=== PATIENT | female | born 1980 | race Caucasian/White ===

== ENCOUNTER → 2020-02-12 14:51 | Outpatient (BNVA) | payer BC, SELFPAY | PROVIDERS: PCP Internal Medicine; Referring Provider Internal Medicine; Visit Provider Advanced Practice Midwife | DX: Z76.89 Persons encountering health services in other specified circumstances (principal) ==

== ENCOUNTER 2020-03-11 08:36 | Outpatient (REF) | payer BC, SELFPAY ==
--- NOTE | 2020-03-11 08:39 | MM_ITS ---
EXAMINATION: MM SCREENING DIGITAL BREAST TOMOSYNTHESIS, BILATERAL CLINICAL INFORMATION: Screening. Asymptomatic. The lifetime risk of breast cancer based on the Tyrer-Cuzick Model is 15%. COMPARISON: Mammography: 12/10/2018, 05/23/2011, 11/10/2010, 11/05/2010 TECHNIQUE: Digital breast tomosynthesis is performed in both the craniocaudal and mediolateral oblique views along with computer-aided detection (CAD). Synthesized 2D images are generated from the tomosynthesis. FINDINGS: There are scattered areas of fibroglandular density (ACR BI-RADS breast composition Category b). Breast tissue composition borders on heterogeneously dense. There is no significant mass or architectural abnormality. Again, there are biopsy clips upper outer right breast with some residual punctate calcifications. There are no significant calcifications in either breast. The axilla and skin contours are unremarkable. MM/MM tomosynthesis screening BI IMPRESSION: No significant changes from prior exams. ASSESSMENT: BI-RADS 2: Benign RECOMMENDATION: Routine annual mammography screening. This patient's information was entered into a reminder system with a target due date for their next mammogram.
== END 2020-03-11 08:37 | disposition home or self-care (01) ==
LOC: HO.MAMMO 08:36
PROVIDERS: PCP Internal Medicine; Visit Provider Advanced Practice Midwife
DX: Z12.31 Encounter for screening mammogram for malignant neoplasm of breast (principal)
CPT/HCPCS: 77063; 77067

== ENCOUNTER 2020-06-17 14:15 | Outpatient (REF) | payer BC, SELFPAY ==
[2020-06-17 14:45] LABS: MANUAL DIFF FLAG NO
[2020-06-17 14:48] LABS: Basophils Percent Auto 0.4 % (0-2); Eosinophils Percent Auto 0.7 % (0-4); Hematocrit 41.5 % (37-47); Hemoglobin 13.9 g/dl (12.0-16.0); Imm Gran Abs Auto 0.02 X10*3/uL (0.00-0.03); Imm Gran Pct Auto 0.4 % (0.0-0.4); Lymphocytes Absolute Auto 2.6 X10*3/uL (1.2-4.9); Lymphocytes Percent Auto 45.4 % (20-40); Mean Corpuscular HGB Conc 33.5 g/dl (31.0-35.0); Mean Corpuscular Hemoglobin 30.7 pg (27.0-33.0); Mean Corpuscular Volume 91.6 fL (80-98); Mean Platelet Volume 8.4 fL (9.4-12.3); Monocytes Absolute Auto 0.5 X10*3/uL (0.1-1.2); Monocytes Percent Auto 8.3 % (2-11); Neutrophils Absolute Auto 2.5 X10*3/uL (2.0-8.3); Neutrophils Percent Auto 44.8 % (45-73); Platelet Count 292 X10*3/uL (160-400); Red Blood Count 4.53 X10*6/uL (4.20-5.50); Red Cell Distribution Width 11.7 % (11.0-16.0); White Blood Count 5.7 X10*3/uL (4.8-10.8)
[2020-06-17 15:14] LABS: Anion Gap 10 (12-20); Blood Urea Nitrogen 10 mg/dL (9-16); Calcium 8.9 mg/dL (8.4-10.2); Carbon Dioxide 28 mmol/L (22-29); Chloride 104 mmol/L (96-108); Cholesterol 156 mg/dL; Estimated Glomerular Filt Rate > 60; Glucose Fasting 83 mg/dL (60-99); HDL Cholesterol 55 mg/dL; LDL Cholesterol Calculated 91 mg/dl; Potassium 3.9 mmol/L (3.3-5.1); Sodium 138 mmol/L (135-145); Triglycerides 52 mg/dL
[2020-06-17 15:35] LABS: Vitamin D 25-OH Total 25.7 ng/mL (>30)
[2020-06-18 10:06] LABS: Anti-Thrombin III Activity 94 % normal (80-135)
[2020-06-18 13:16] LABS: PTT (LAC) Screen 28 sec (< OR = 40)
[2020-06-19 22:12] LABS: Protein C Activity 110 % (70-180); Protein S Activity rflx Tot&Fr 23 % (60-140)
[2020-06-23 13:08] LABS: Protein S Free Antigen 54 % normal (50-147); Protein S Total (Antigenic) 60 % normal (70-140)
== END 2020-06-17 14:16 | disposition home or self-care (01) ==
LOC: HO.LAB 14:15
PROVIDERS: PCP Internal Medicine; Visit Provider Internal Medicine
DX: O09.519 Supervision of elderly primigravida, unspecified trimester (principal); O22.30 Deep phlebothrombosis in pregnancy, unspecified trimester; O16.9 Unspecified maternal hypertension, unspecified trimester; Z87.59 Personal history of other complications of pregnancy, childbirth and the puerperium; Z3A.00 Weeks of gestation of pregnancy not specified
CPT/HCPCS: 36415; 80048; 80061; 81241; 82306; 85025; 85300; 85302; 85303; 85305; 85306; 85597; 85613; 85730

== ENCOUNTER 2020-09-18 10:00 | Outpatient (REF) | payer BC, SELFPAY ==
[2020-09-21 22:27] LABS: Protein S Activity rflx Tot&Fr 26 % (60-140)
[2020-09-23 12:22] LABS: Protein S Free Antigen 48 % normal (50-147); Protein S Total (Antigenic) 57 % normal (70-140)
== END 2020-09-18 10:01 | disposition home or self-care (01) ==
LOC: HO.WFDLDS 10:00
PROVIDERS: Visit Provider Internal Medicine Medical Oncology
DX: O22.30 Deep phlebothrombosis in pregnancy, unspecified trimester (principal)
CPT/HCPCS: 36415; 81240; 85305; 85306

== ENCOUNTER → 2021-03-24 11:04 | Outpatient (BNVA) | payer BC, SELFPAY | PROVIDERS: PCP Internal Medicine; Visit Provider Obstetrics & Gynecology ==

== ENCOUNTER 2021-06-02 15:22 | Outpatient (REF) | payer BC, SELFPAY ==
--- NOTE | ~2021-06-02 | MM_ITS ---
EXAMINATION: MM SCREENING DIGITAL BREAST TOMOSYNTHESIS, BILATERAL CLINICAL INFORMATION: Screening. Asymptomatic. The lifetime risk of breast cancer based on the Tyrer-Cuzick Model is 16%. COMPARISON: Mammography: 03/11/2020, 12/10/2018, 05/23/2011, 11/10/2010, 11/05/2010 TECHNIQUE: Digital breast tomosynthesis is performed in both the craniocaudal and mediolateral oblique views along with computer-aided detection (CAD). Synthesized 2D images are generated from the tomosynthesis. FINDINGS: There are scattered areas of fibroglandular density (ACR BI-RADS breast composition Category b). There are no significant masses, abnormal calcifications, or other abnormalities. Breast tissue composition borders on heterogeneously dense. Biopsy clip markers again seen right breast upper outer quadrant with a few residual punctate calcifications. There are no significant changes from prior studies. No interval mass or architectural abnormality or abnormal calcifications. The axilla are unremarkable. MM/MM tomosynthesis screening BI IMPRESSION: No mammographic evidence of malignancy. ASSESSMENT: BI-RADS 2: Benign RECOMMENDATION: Routine annual mammography screening. This patient's information was entered into a reminder system with a target due date for their next mammogram.
== END 2021-06-02 15:23 | disposition home or self-care (01) ==
LOC: HO.MAMMO 15:22
PROVIDERS: Visit Provider Obstetrics & Gynecology
DX: Z12.31 Encounter for screening mammogram for malignant neoplasm of breast (principal)
CPT/HCPCS: 77063; 77067

== ENCOUNTER 2022-03-29 15:46 | Outpatient (REF) | payer BC, SELFPAY ==
[2022-03-31 19:59] LABS: HPV mRNA E6/E7 rflx Not Detected (Not Detected)
== END 2022-03-29 15:47 | disposition home or self-care (01) ==
LOC: HO.LNP 15:46
PROVIDERS: Visit Provider Obstetrics & Gynecology
DX: Z01.419 Encounter for gynecological examination (general) (routine) without abnormal findings (principal); Z11.51 Encounter for screening for human papillomavirus (HPV)
CPT/HCPCS: 87624; 88142

== ENCOUNTER 2022-06-08 15:21 | Outpatient (REF) | payer BC, SELFPAY ==
--- NOTE | ~2022-06-08 | MM_ITS ---
EXAMINATION: MM SCREENING DIGITAL BREAST TOMOSYNTHESIS, BILATERAL CLINICAL INFORMATION: Asymptomatic screening The lifetime risk of breast cancer based on the Tyrer-Cuzick Model is 15.1%. COMPARISON: Mammography: June 02, 2021 and studies dating back to May 23, 2011 TECHNIQUE: Digital breast tomosynthesis is performed in both the craniocaudal and mediolateral oblique views along with computer-aided detection (CAD). Synthesized 2D images are generated from the tomosynthesis. FINDINGS: The breasts are heterogeneously dense, which may obscure small masses (ACR BI-RADS breast composition Category c). There are no significant masses, abnormal calcifications, or other abnormalities. Results are provided to the patient at time of visit by the technologist. MM/MM tomosynthesis screening BI IMPRESSION: There are no significant changes from prior study. ASSESSMENT: BI-RADS 1: Negative RECOMMENDATION: Routine annual mammography screening. This patient's information was entered into a reminder system with a target due date for their next mammogram.
== END 2022-06-08 15:22 | disposition home or self-care (01) ==
LOC: HO.MAMMO 15:21
PROVIDERS: PCP Internal Medicine; Visit Provider Internal Medicine
DX: Z12.31 Encounter for screening mammogram for malignant neoplasm of breast (principal)
CPT/HCPCS: 77062; 77063; 77066; 77067

== ENCOUNTER 2022-12-20 11:15 | Outpatient (AMB) | payer BC, SELFPAY ==
[2022-12-20 11:25] VITALS: BP 110/64; PULSE 84; TEMP 36.8; O2SAT 98; BMI 23.3
--- NOTE | 2022-12-20 11:25 | MHC.OFFWIV ---
Intake Vital Signs 12/20/22 11:25 Height 5 ft 6 in Weight 144 lb 6 oz BMI 23.3 BP 110/64 Blood Pressure Location Rt brachial Position Sitting Pulse 84 Pulse Source Pulse Oximeter Temp 98.3 F Temp Source Temporal Artery Scan Pulse Oximetry (%) 98 Oxygen Delivery Method Room Air Intake Visit Reasons: EP, Left leg pain Intake Note: Pt is here c/o left leg pain since Monday morning. Pt states no falls or injuries. Pt states 16 years ago she did have a blood clot in her leg. Patient Tobacco Use Status: Never used Tobacco Allergies No Known Allergies Allergy (Unknown, Verified 12/20/22 11:54) Medication List - Last Reconciled 12/20/22 by Alexander Pascal MD cholecalciferol (vitamin D3) 1,250 mcg PO QWEEK 90 days multivitamin 1 tab PO DAILY Do you need a note to return to daycare/school/sports/work: No HPI EP, Left leg pain HPI Details 42-year-old female presents to the office for a sick visit. Patient believes she could have a blood clot in her left leg. She was diagnosed with DVT 14 years ago after a . She was on Lovenox and Coumadin for 6 months. [place] and returned a few days ago driving. She noticed that her left leg feels a little swollen and mild discomfort. 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 Gender identity: Female Female Reproductive History Menstrual Age of Menarche: 11 Physical Exam Vital Signs: Last Vital Signs Temp 98.3 F 12/20/22 11:25 Pulse 84 12/20/22 11:25 BP 110/64 12/20/22 11:25 Pulse Ox 98 12/20/22 11:25 Oxygen Delivery Method Room Air 12/20/22 11:25 BMI result Body Mass Index 23.3 Const General: cooperative and healthy appearing Nutritional Appearance: well nourished Orientation/consciousness: patient oriented x3 Limitations: no limitations HEENT Head: Yes normal to inspection Eyes General: appearance normal, both eyes and all related structures Neck Neck: Yes normal visual inspection Chest Chest palpation & inspection: normal palpation of entire chest wall Resp Effort & Inspection: normal respiratory effort Neuro General: patient oriented x3 Extrem Other: Left leg: Slightly swollen compared to the right. No visible bruising or tenderness. Assessment & Plan Assessment & Plan (1) Deep vein thrombosis: Code(s): I82.409 - Acute embolism and thrombosis of unspecified deep veins of unspecified lower extremity Plan: Previous record reviewed for 15 minutes. Patient has hypercoagulable state with protein S deficiency. An ultrasound has been requested. The results are pending at the time of patient's discharge. I informed her that I would call her with results. Orders: Orders US venous duplex LE LT Today I82.409 - Acute embolism and thrombosis of unspecified deep veins of unspecified lower extremity Coding Level of Care Code Est Pt Level 4 (08840) Diagnoses Deep vein thrombosis I82.409
== END 2022-12-20 11:57 | disposition home or self-care (01) ==
PROVIDERS: PCP Internal Medicine; Visit Provider Internal Medicine
DX: I82.409 Acute embolism and thrombosis of unspecified deep veins of unspecified lower extremity (principal)
CPT/HCPCS: 99214

== ENCOUNTER 2022-12-20 11:59 | Outpatient (REF) | payer BC, SELFPAY ==
--- NOTE | ~2022-12-20 | US_ITS ---
EXAMINATION: US VENOUS ULTRASOUND WITH DOPPLER LOWER EXTREMITY, LEFT CLINICAL INFORMATION: Left lower extremity swelling. COMPARISON: None available. TECHNIQUE: Ultrasound of the deep veins is performed from the hip to the calf with compression sonography and color and pulse Doppler assessment. Spectral analysis with color-flow imaging is performed. FINDINGS: There is normal venous compression and respiratory variation and augmented flow. The visualized common femoral vein, superficial femoral vein, profunda femoral vein, popliteal vein, and the trifurcation region shows no evidence of deep venous thrombosis. Arterial and occlusive thrombus is seen in the left gastrocnemius vein. The right common femoral vein is patent. No left popliteal cyst. The subcutaneous soft tissues are unremarkable. US/US venous duplex LE LT IMPRESSION: Partial and occlusive occlusive thrombus in the left gastrocnemius vein. No evidence for deep venous thrombosis in the remainder of the left lower extremity.
== END 2022-12-20 12:00 | disposition home or self-care (01) ==
LOC: HO.HMGCX 11:59
PROVIDERS: PCP Internal Medicine; Visit Provider Internal Medicine
DX: M79.89 Other specified soft tissue disorders (principal)
CPT/HCPCS: 93971

== ENCOUNTER 2023-01-26 14:19 | Outpatient (AMB) | payer BC, SELFPAY ==
--- NOTE | 2023-01-26 14:27 | A.OFFPC_ITS ---
Vital Signs 01/26/23 14:46 Height 5 ft 6 in Weight 145 lb BMI 23.4 BP 98/60 Blood Pressure Location Rt brachial Position Sitting Pulse 76 Pulse Source Pulse Oximeter Pulse Oximetry (%) 99 Oxygen Delivery Method Room Air Intake Visit Reasons: Hemotology Referral-Blood Clot in Lower Left Leg Intake Note: patient is here today for a blood clot in lower leg Allergies No Known Allergies Allergy (Unknown, Verified 01/26/23 15:32) Medication List - Last Reconciled 01/26/23 by Martha Cobb MD apixaban (Eliquis) 5 mg PO BID cholecalciferol (vitamin D3) 1,250 mcg PO QWEEK 90 days multivitamin 1 tab PO DAILY Tobacco use date assessed: 01/26/23 Dental Screening Dental Screen Date: 01/26/23 Did you have a dental visit in the last 12 months?: Yes Did you have a dental problem in the last 6 months where you did not have access to dental care?: No Was dental information given to patient?: Patient has dentist HPI Hemotology Referral-Blood Clot in Lower Left Leg HPI Details 42-year-old lady here today for follow-u p after recent ER visit. She has protein S deficiency, had a DVT when she was approximately 16 years ago. Did not develop any complications from this, was not on any blood thinner. She presented recently to the walk-in clinic complaining of heaviness and pain behind her left knee joint. An ultrasound of vein did not show any evidence of DVT however it did show presence of superficial thrombophlebitis in the left lower extremity. She was prescribed Eliquis 5 mg twice a day and requesting a referral to see follow-up with Hematology again. Has seen Dr. Molina in the past [facility] Medical History History of deep venous thrombosis (DVT) of distal vein of right lower extremity Protein S deficiency Hx of deep vein thrombosis during Surgical History H/O breast biopsy History of wisdom tooth extraction Family History Paternal Grandmother Breast cancer Mother Adenoid cystic carcinoma Maternal Grandmother Ovarian cancer Maternal Grandfather Prostate cancer Social History Household Members: Spouse and Children Housing: House Alcohol intake: former Patient Tobacco Use Status: Never used Tobacco service: No Current occupational status: employed 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 1. Little interest or pleasure in doing things: not at all 2. Feeling down, depressed, or hopeless: not at all 3. Trouble falling or staying asleep, or sleeping too much: not at all 4. Feeling tired or having little energy: not at all 5. Poor appetite or overeating: not at all 6. Feeling bad about yourself - or that you are a failure or have let yourself or your family down: not at all 7. Trouble concentrating on things, such as reading the newspaper or watching television: not at all 8. Moving or speaking so slowly that other people could have noticed. Or the opposite - being so fidgety or restless that you have been moving around a lot more than usual: not at all 9. Thoughts that you would be better off or of hurting yourself in some way: not at all Total score: 0 Depression Screening Interpretation: Negative 91890 - PHQ-9 Billing: Yes Source: Developed by Drs. Carlos Landon, Soledad Herman, Charlie Spencer and colleagues, with an educational harmeet from [employer]. Thrive Questionnaire Date Thrive assessed: 01/26/23 I am a: Patient What is your living situation today?: I have a steady place to live Within the past 12 months, did the food you bought not last and you didn't have the money to get more?: Never true Within the past 12 months, did you worry whether your food would run out before you got money to buy more?: Never true Do you have trouble paying for medicines?: No Do you have trouble getting transportation to medical appointments?: No Do you have trouble paying your heating and electricity bill?: No Do you have trouble taking care of your child, family member or friend?: No Do you have trouble with day-to-day activities such as bathing, preparing meals, shopping, managing finances, etc.?: No Are you currently unemployed and looking for a job?: No Are you interested in more education?: No AUDIT C Alcohol Use Questionnaire (AUDIT-C) 1. How often do you have a drink containing alcohol?: Never Total Score: 0 DARRON-7 AMB Questionnaire DARRON-7 Date DARRON - 7 assessed: 01/26/23 Feeling nervous, anxious, or on edge: 0 = Not at all Not being able to stop or control worryin = Not at all Worrying too much about different things: 0 = Not at all Trouble relaxin = Not at all Being so restless that it is hard to sit still: 0 = Not at all Becoming easily annoyed or irritable: 0 = Not at all Feeling afraid as if something awful might happen: 0 = Not at all Total DARRON-7 score (0-4 normal; 5-9 mild; 10-14 moderate; 15-21 severe): 0 Source: Developed by Drs. Carlos Landon, Soledad Herman, Charlie Spencer and colleagues, with an educational harmeet from [employer]. DARRON-7 Assessment Billing DARRNO-7 Assessment Tool: DARRON-7 Assessment 53572 Review of Systems Const Reports no additional complaints, Denies anorexia, Denies fever(s) and Denies lethargy Eyes Denies change in vision ENT Denies dysphagia, Denies vertigo, Denies dizziness and Denies ear discharge Card Denies chest pain at rest, Denies chest pain with activity, Reports pedal edema, Denies irregular heart rhythm, Denies lightheadedness, Denies dyspnea and Denies dyspnea on exertion Resp Denies chest congestion, Denies cough, Denies hemoptysis, Denies dyspnea, Denies dyspnea on exertion and Denies wheezing GI Denies abdominal pain, Denies melena, Denies hematochezia, Denies dysphagia, Denies early satiety, Denies heartburn and Denies nausea Reports no additional complaints Musc Reports no additional complaints Neuro Denies vertigo and Denies dizziness Ger/Lymph Denies easy bleeding and Denies easy bruising Aller/Immun Denies wheezing Physical exam (Primary Care) Vital Signs: Last Vital Signs Pulse 76 01/26/23 14:46 BP 98/60 01/26/23 14:46 Pulse Ox 99 01/26/23 14:46 Oxygen Delivery Method Room Air 01/26/23 14:46 BMI result Body Mass Index 23.4 Tobacco/Smoking Status: Tobacco use Status Tobacco use date assessed 01/26/23 01/26/23 14:54 Patient Tobacco Use Status Never used Tobacco 01/26/23 14:27 PHQ-9: PHQ-9 Score PHQ-9: Total score 0 01/26/23 15:32 Depression Screening Interpretation: Negative Thrive Assessment: Date of Thrive Assessment Date Thrive assessed 01/26/23 01/26/23 14:54 Const Other: Alert oriented x3, no acute distress noted, ambulatory normal gait Orientation/consciousness: patient oriented x3 Neck Other: Supple with no lymphadenopathy, thyroid gland nonpalpable Chest Chest palpation & inspection: normal inspection of the chest Breast/axilla inspection: normal inspection of the breasts Breast/axilla palpation: normal palpation of the breasts Resp Effort & Inspection: normal respiratory effort and able to speak in complete sen tences Auscultation: clear to auscultation bilaterally Cardio Other: S1-S2 present regular rate and rhythm GI Other: Normal bowel sounds, soft, nontender with no mass palpated Skin General skin exam: no rashes or lesions noted Neuro General: patient oriented x3, gait normal, moves all extremities, Normal light touch and pain sensation and no focal motor deficits Extrem Other: Varicose veins noted on left lower extremity, nonthrombosed, no calf tenderness, no pedal edema noted Assessment and Plan Assessment & Plan (1) Protein S deficiency: Code(s): D68.59 - Other primary thrombophilia Plan: Recently started on Eliquis 5 mg taken 1 tab twice a day, refill sent, referral to Dr. Molina for re-evaluation (2) Hx of deep vein thrombosis during : Code(s): Z86.718 - Personal history of other venous thrombosis and embolism; Z87.59 - Personal history of other complications of , childbirth and the puerperium (3) History of deep venous thrombosis (DVT) of distal vein of right lower extremity: Code(s): Z86.718 - Personal history of other venous thrombosis and embolism Orders: Referrals Hematology & Oncology Referral D68.59 - Other primary thrombophilia, Z86.718 - Personal history of other venous thrombosis and embolism, Z87.59 - Personal history of other complications of , childbirth and the puerperium Coding Level of Care Code Est Pt Level 3 (91486) Diagnoses Protein S deficiency D68.59 Hx of deep vein thrombosis during Z86.718; Z87.59 History of deep venous thrombosis (DVT) of distal vein of right lower extremity Z86.718 Additional Codes DARRON-7 Assessment Billing - DARRON-7 Assessment Tool: DARRON-7 Assessment [id number] ([id number])
[2023-01-26 14:46] VITALS: BP 98/60; PULSE 76; O2SAT 99; BMI 23.4
== END 2023-01-26 15:32 | disposition home or self-care (01) ==
PROVIDERS: PCP Internal Medicine; Visit Provider Internal Medicine
DX: D68.59 Other primary thrombophilia (principal); Z86.718 Personal history of other venous thrombosis and embolism; Z87.59 Personal history of other complications of pregnancy, childbirth and the puerperium
CPT/HCPCS: 99213

== ENCOUNTER → 2023-02-22 13:33 | Outpatient (BNV) | payer BC, SELFPAY | PROVIDERS: PCP Internal Medicine; Visit Provider Internal Medicine | DX: I82.402 Acute embolism and thrombosis of unspecified deep veins of left lower extremity (principal); D68.59 Other primary thrombophilia; Z86.718 Personal history of other venous thrombosis and embolism | CPT/HCPCS: 99214 ==

== ENCOUNTER 2023-03-10 10:27 | Outpatient (REF) | payer BC, SELFPAY ==
--- NOTE | ~2023-03-10 | US_ITS ---
EXAMINATION: US VENOUS ULTRASOUND WITH DOPPLER LOWER EXTREMITY, LEFT CLINICAL INFORMATION: Superficial clot on anticoagulant. COMPARISON: 12/05 and 12/20/2022 TECHNIQUE: Ultrasound of the deep veins is performed from the hip to the calf with compression sonography and color and pulse Doppler assessment. Spectral analysis with color-flow imaging is performed. FINDINGS: There is normal venous compression and respiratory variation and augmented flow. The visualized common femoral vein, superficial femoral vein, profunda femoral vein, popliteal vein, and the trifurcation region shows no evidence of deep venous thrombosis. Contralateral right common femoral vein was interrogated and is unremarkable in appearance. On 12/20/2022, partial left gastrocnemius clot was identified. On today's study, there is patency with no intraluminal gastrocnemius thrombus identified. There is no significant popliteal fossa cyst. If the patient's symptoms persist, followup ultrasound in 5 days 7 days might be of value to exclude proximal propagation from a non-visualized calf vein. US/US venous duplex LE LT IMPRESSION: No DVT demonstrated in the left lower extremity. Resolution gastrocnemius clot since previous study.
== END 2023-03-10 10:28 | disposition home or self-care (01) ==
LOC: HO.HMGCX 10:27
PROVIDERS: PCP Internal Medicine; Visit Provider Internal Medicine
DX: I82.402 Acute embolism and thrombosis of unspecified deep veins of left lower extremity (principal)
CPT/HCPCS: 93971

== ENCOUNTER 2023-04-04 15:22 | Outpatient (AMB) | payer BC, SELFPAY ==
[2023-04-04 15:29] VITALS: BP 100/64; BMI 22.8
--- NOTE | 2023-04-04 15:29 | MHC.OFFVIS ---
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 No complaints. Last Pap/HPV was negative in 03/22 Last Mammogram was BI-RADS 1 in 06/23 [facility] Medical History History of deep venous thrombosis (DVT) of distal vein of right lower extremity Protein S deficiency Hx of deep vein thrombosis during Surgical History H/O breast biopsy History of wisdom tooth extraction Family History Paternal Grandmother Breast cancer Mother Adenoid cystic carcinoma Maternal Grandmother Ovarian cancer Maternal Grandfather Prostate cancer Deep vein blood clot of left lower extremity Maternal Aunt Factor 5 Leiden mutation, heterozygous Social History Household Members: Spouse and Children Housing: House Alcohol intake: former Patient Tobacco Use Status: Never used Tobacco service: No Current occupational status: employed 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 Gender identity: Female Female Reproductive History Menstrual Age of Menarche: 11 Date of last menstrual period: 03/14/23 Total pregnancies: 1 Full term: 1 Number of Living Children: 1 Date of last pap smear: 03/29/22 (neg pap and hpv) Date of Mammogram: 06/08/22 Review of Systems Const All systems reviewed & are unremarkable except as noted in HPI and below Card Reports as per HPI Resp Reports as per HPI GI Reports as per HPI and Reports no additional complaints Reports as per HPI Physical Exam Vital Signs: BMI result Body Mass Index 22.8 Const General: cooperative, healthy appearing and comfortable Chest Chest palpation & inspection: normal inspection of the chest and normal palpation of entire chest wall Breast/axilla inspection: normal inspection of the breasts and normal inspection of the axillae Breast/axilla palpation: normal palpation of the breasts, normal palpation of the axillae and no axillary lymphadenopathy Resp Effort & Inspection: normal respiratory effort Auscultation: clear to auscultation bilaterally Percussion: percussion normal Cardio Palpation: normal PMI Rate: regular rate Rhythm: regular rhythm Heart sounds: no murmurs and no rubs Peripheral pulses: Peripheral pulses 2+ throughout GI Inspection: Yes normal to inspection Palpation (GI): Soft to palpation, nontender, no guarding, not rigid and No hepatosplenomegaly present Percussion: Yes normal to percussion Auscultation: normal bowel sounds Rectal Exam - Female: deferred General: Yes bladder normal to palpation External Female Exam: No lesion Speculum Exam - Vagina: normal appearance of the vagina, normal palpation, normal vaginal discharge and not erythematous Speculum Exam - Cervix: normal appearance of the cervix and normal palpation Bimanual exam- vagina & uterus: normal bimanual exam, normal palpation, uterine size normal, bladder normal to palpation, consistency normal and normal palpation Bimanual Exam- Adnexa, other: normal adnexae, no masses and no tenderness Assessment & Plan Assessment & Plan (1) Well woman exam: Code(s): Z01.419 - Encounter for gynecological examination (general) (routine) without abnormal findings Plan: Cotesting not indicated this year. Instructions given the patient to schedule next screen Mammogram in 06/24. Counseled the patient about the recommended dietary allowance of 1000 mg of Calcium & 600 IU of vitamin D. The patient was instructed to perform monthly self-breast exams and to schedule an annual exam in a year; All questions answered and the patient verbalized understanding. Instructed the patient to schedule annual exam in a year Coding Level of Care Code Est Pt Prev Care 40-64y(60301) Diagnoses Well woman exam Z01.419
== END 2023-04-04 15:50 | disposition home or self-care (01) ==
PROVIDERS: Visit Provider Obstetrics & Gynecology
DX: Z01.419 Encounter for gynecological examination (general) (routine) without abnormal findings (principal)
CPT/HCPCS: 99396

== ENCOUNTER → 2023-04-04 15:22 | Outpatient (BNVA) | payer BC, SELFPAY | PROVIDERS: Visit Provider Obstetrics & Gynecology ==

== ENCOUNTER 2023-04-11 08:29 | Outpatient (AMB) | payer BC, SELFPAY ==
[2023-04-11 08:35] VITALS: BP 100/64; PULSE 62; O2SAT 100; BMI 22.5
--- NOTE | 2023-04-11 08:35 | MHC.PC.OV ---
Vital Signs 04/11/23 08:35 Height 5 ft 6 in Weight 139 lb 6 oz BMI 22.5 BP 100/64 Blood Pressure Location Rt brachial Position Sitting Pulse 62 Pulse Source Pulse Oximeter Pulse Oximetry (%) 100 Oxygen Delivery Method Room Air Intake Visit Reasons: phy Intake Note: Pt is here for her Annual PE Is last menstrual period known: Yes Last menstrual period: 04/09/23 Allergies No Known Allergies Allergy (Unknown, Verified 04/11/23 12:53) Medication List - Last Reconciled 04/11/23 by Martha Cobb MD apixaban (Eliquis) 5 mg PO BID multivitamin 1 tab PO DAILY Tobacco use date assessed: 04/11/23 Dental Screening Dental Screen Date: 04/11/23 Did you have a dental visit in the last 12 months?: Yes Did you have a dental problem in the last 6 months where you did not have access to dental care?: No Was dental information given to patient?: Patient has dentist HPI phy HPI Details 42-year-old lady with protein S deficiency, history of DVT, currently on apixaban 5 mg taken 1 tablet twice a day, here today for physical exam. She has been feeling well, with no abnormal bleeding tendencies noted. She stays active, runs for exercise, and has been compliant with her diet. She is up-to-date with all her vaccinations but does not want to get her flu shot or the COVID booster at this time. She is up-to-date with her screening mammogram, had recent Doppler venous ultrasound which did not show any evidence of blood clots in her legs. She sees Dr. Mack for her routine Pap and pelvic exam, up-to-date with her cervical cancer screening and pelvic exam, last done a year ago, and gets it every 3 years. [facility] Medical History History of vitamin D deficiency History of deep venous thrombosis (DVT) of distal vein of right lower extremity Protein S deficiency Hx of deep vein thrombosis during Surgical History H/O breast biopsy History of wisdom tooth extraction Family History Paternal Grandmother Breast cancer Mother Adenoid cystic carcinoma Maternal Grandmother Ovarian cancer Maternal Grandfather Prostate cancer Deep vein blood clot of left lower extremity Maternal Aunt Factor 5 Leiden mutation, heterozygous Maternal Uncle Factor 5 Leiden mutation, heterozygous Social History Household Members: Spouse and Children Housing: House Alcohol intake: former Patient Tobacco Use Status: Never used Tobacco e-Cigarette/Vaping Use: Never Used Second Hand Smoke Exposure: No Use of substances other than those prescribed or required for medical reasons: No Do you feel safe in your current relationship?: Yes Do you have thoughts of harming others: None service: No 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 1. Little interest or pleasure in doing things: not at all 2. Feeling down, depressed, or hopeless: not at all 3. Trouble falling or staying asleep, or sleeping too much: not at all 4. Feeling tired or having little energy: not at all 5. Poor appetite or overeating: not at all 6. Feeling bad about yourself - or that you are a failure or have let yourself or your family down: not at all 7. Trouble concentrating on things, such as reading the newspaper or watching television: not at all 8. Moving or speaking so slowly that other people could have noticed. Or the opposite - being so fidgety or restless that you have been moving around a lot more than usual: not at all 9. Thoughts that you would be better off or of hurting yourself in some way: not at all Total score: 0 Depression Screening Interpretation: Negative Depression Screening Done: Yes 88378 - PHQ-9 Billing: Yes Source: Developed by Drs. Carlos Landon, Soledad Herman, Charlie Spencer and colleagues, with an educational harmeet from [employer]. Thrive Questionnaire Date Thrive assessed: 01/26/23 AUDIT C Alcohol Use Questionnaire (AUDIT-C) 1. How often do you have a drink containing alcohol?: Never Total Score: 0 DARRON-7 AMB Questionnaire DARRON-7 Date DARRON - 7 assessed: 01/26/23 Source: Developed by Drs. Carlos Landon, Soledad Herman, Charlie Spencer and colleagues, with an educational harmeet from [employer]. Review of Systems Const Reports no additional complaints, Denies anorexia, Denies fever(s) and Denies lethargy Eyes Details: She sees my eye doctor in [place] Denies change in vision ENT Denies bleeding gums, Denies dysphagia, Denies vertigo, Denies dizziness, Denies ear discharge and Denies nasal congestion Card Denies chest pain at rest, Denies chest pain with activity, Reports pedal edema (Towards end of the day, resolves with elevation of legs), Denies irregular heart rhythm, Denies lightheadedness, Denies dyspnea and Denies dyspnea on exertion Resp Denies chest congestion, Denies cough, Denies hemoptysis, Denies dyspnea, Denies dyspnea on exertion and Denies wheezing GI Denies abdominal pain, Denies melena, Denies hematochezia, Denies dysphagia, Denies early satiety, Denies heartburn and Denies nausea Reports no additional complaints and Denies nipple discharge Musc Reports no additional complaints Skin/Breast Denies breast swelling, Denies breast skin changes, Denies breast pain, Denies breast mass, Denies lesions, Denies nipple discharge and Denies rash Neuro Denies vertigo and Denies dizziness Psych Reports no additional complaints Endo Reports no additional complaints Ger/Lymph Denies easy bleeding and Denies easy bruising Aller/Immun Denies wheezing Physical exam (Primary Care) Vital Signs: Last Vital Signs Pulse 62 04/11/23 08:35 BP 100/64 04/11/23 08:35 Pulse Ox 100 04/11/23 08:35 Oxygen Delivery Method Room Air 04/11/23 08:35 BMI result Body Mass Index 22.5 Tobacco/Smoking Status: Tobacco use Status Tobacco use date assessed 04/11/23 04/11/23 08:41 Patient Tobacco Use Status Never used Tobacco 04/11/23 08:35 e-Cigarette/Vaping Use Never Used 04/11/23 08:41 Depression Screening Interpretation: Negative Thrive Assessment: Date of Thrive Assessment Date Thrive assessed 01/26/23 04/11/23 08:35 Const Other: Alert oriented x3, no acute distress noted, ambulatory normal gait Orientation/consciousness: patient oriented x3 HENMT Head: Yes normocephalic and Yes atraumatic Ears: hearing grossly normal bilaterally, external ears normal, TM's normal bilaterally and EAC's normal General nose exam: Normal external nose present Face and sinus: Yes face symmetric Mouth: Normal oral and palatal mucosa present, oropharynx normal and moist mucous membranes Eyes General: appearance normal, both eyes and all related structures Neck Other: Supple with no lymphadenopathy, thyroid gland nonpalpable Chest Chest palpation & inspection: normal inspection of the chest Breast/axilla inspection: normal inspection of the breasts Breast/axilla palpation: normal palpation of the breasts Resp Effort & Inspection: normal respiratory effort and able to speak in complete sentences Auscultation: clear to auscultation bilaterally Cardio Other: S1-S2 present regular rate and rhythm GI Other: Normal bowel sounds, soft, nontender with no mass palpated General: Yes no CVA tenderness and Yes 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) Back/Spine/Pelvis Back: no CVA tenderness and No back tenderness Skin General skin exam: no rashes or lesions noted Neuro General: patient oriented x3, gait normal, moves all extremities, Normal light touch and pain sensation and no focal motor deficits Extrem Other: Varicose veins noted on left lower extremity, nonthrombosed, no calf tenderness, no pedal edema noted Psych Appearance: grossly normal Mental Status: mental status grossly normal Speech and movement: Normal speech and movement present Affect: normal affect Attitude: cooperative Thought process: Normal thought process present Thought content: Normal thought content present Assessment and Plan Assessment & Plan (1) Annual visit for general adult medical examination with abnormal findings: Code(s): Z00.01 - Encounter for general adult medical examination with abnormal findings Plan: Will check appropriate labs. Continue with regular dental visit every 6 months and regular eye exams, at least every 2 years. Take adequate calcium in diet and vitamin-D 3 at 2000 IU per cap once a day, in addition to weight-bearing exercises to help maintain good muscle tone and weight control. Instructed to do self-breast exam, and continue to get yearly mammogram,. She currently is being followed by Dr. Mack for her routine Pap pelvic exam, currently up-to-date. She declines getting any COVID booster or flu shot (2) Protein S deficiency: Code(s): D68.59 - Other primary thrombophilia Plan: Currently taking Eliquis 5 mg per tablet, 1 tablet taken twice a day (3) History of vitamin D deficiency: Code(s): Z86.39 - Personal history of other endocrine, nutritional and metabolic disease Plan: Will check vitamin-D level Orders: Orders Vitamin D 25-OH Total Today D68.59 - Other primary thrombophilia, Z00.01 - Encounter for general adult medical examination with abnormal findings, Z13.220 - Encounter for screening for lipoid disorders, Z86.39 - Personal history of other endocrine, nutritional and metabolic disease Lipid Panel Today D68.59 - Other primary thrombophilia, Z00.01 - Encounter for general adult medical examination with abnormal findings, Z13.220 - Encounter for screening for lipoid disorders, Z86.39 - Personal history of other endocrine, nutritional and metabolic disease Coding Level of Care Code Est Pt Prev Care 40-64y(10059) Diagnoses Annual visit for general adult medical examination with abnormal findings Z00.01 Protein S deficiency D68.59 History of vitamin D deficiency Z86.39
== END 2023-04-11 11:07 | disposition home or self-care (01) ==
PROVIDERS: PCP Internal Medicine; Visit Provider Internal Medicine
DX: Z00.00 Encounter for general adult medical examination without abnormal findings (principal); D68.59 Other primary thrombophilia; Z86.39 Personal history of other endocrine, nutritional and metabolic disease
CPT/HCPCS: 99396

== ENCOUNTER 2023-04-11 09:13 | Outpatient (REF) | payer BC, SELFPAY ==
[2023-04-11 12:46] LABS: MANUAL DIFF FLAG NO
[2023-04-11 12:52] LABS: Basophils Percent Auto 0.5 % (0-2); Eosinophils Percent Auto 0.3 % (0-4); Hematocrit 39.7 % (37.0-47.0); Hemoglobin 13.4 g/dl (12.0-16.0); Imm Gran Abs Auto 0.02 X10*3/uL (0.00-0.03); Imm Gran Pct Auto 0.3 % (0.0-0.4); Lymphocytes Absolute Auto 2.4 X10*3/uL (1.2-4.9); Lymphocytes Percent Auto 39.2 % (20-40); Mean Corpuscular HGB Conc 33.8 g/dl (31.0-35.0); Mean Corpuscular Hemoglobin 30.9 pg (27.0-33.0); Mean Corpuscular Volume 91.5 fL (80.0-98.0); Mean Platelet Volume 8.1 fL (9.4-12.3); Monocytes Absolute Auto 0.5 X10*3/uL (0.1-1.2); Monocytes Percent Auto 8.2 % (2-11); Neutrophils Absolute Auto 3.2 x10*3/uL (2.0-8.3); Neutrophils Percent Auto 51.5 % (45-73); Platelet Count 276 X10*3/uL (160-400); Red Blood Count 4.34 X10*6/uL (4.20-5.50); Red Cell Distribution Width 11.9 % (11.0-16.0); White Blood Count 6.2 X10*3/uL (4.8-10.8)
[2023-04-11 13:06] LABS: Alanine Aminotransferase 15 U/L (0-31); Albumin Level 4.5 g/dL (3.5-5.0); Alkaline Phosphatase 41 U/L (39-117); Anion Gap 14 (12-20); Aspartate Amino Transferase 17 U/L (5-31); Bilirubin Total 0.9 mg/dL (0.0-1.0); Blood Urea Nitrogen 8 mg/dL (9-16); Calcium 9.3 mg/dL (8.4-10.2); Carbon Dioxide 26 mmol/L (22-29); Chloride 105 mmol/L (96-108); Cholesterol 134 mg/dL (<200); Estimated Glomerular Filt Rate > 60; Glucose Random 81 mg/dL (60-115); HDL Cholesterol 54 mg/dL (>40); LDL Cholesterol Calculated 71 mg/dL (<100); Potassium 4.3 mmol/L (3.3-5.1); Sodium 141 mmol/L (135-145); Total Protein 7.1 g/dL (6.5-8.0); Triglycerides 48 mg/dL (<150)
[2023-04-11 13:26] LABS: Vitamin D 25-OH Total 43.8 ng/mL (>30)
[2023-04-14 21:29] LABS: Protein S Activity rflx Tot&Fr 33 % normal (60-140)
[2023-04-16 13:24] LABS: Protein S Free Antigen 50 % normal (50-147); Protein S Total (Antigenic) 65 % normal (70-140)
[2023-04-17 21:23] LABS: Prothrombin 20210A NEGATIVE
== END 2023-04-11 09:14 | disposition home or self-care (01) ==
LOC: HO.HMGCLDS 09:13
PROVIDERS: Absent Provider Internal Medicine; PCP Internal Medicine; Visit Provider Internal Medicine
DX: Z00.01 Encounter for general adult medical examination with abnormal findings (principal); Z13.220 Encounter for screening for lipoid disorders; D68.59 Other primary thrombophilia; Z86.39 Personal history of other endocrine, nutritional and metabolic disease; Z86.718 Personal history of other venous thrombosis and embolism
CPT/HCPCS: 36415; 80053; 80061; 81240; 82306; 85025; 85305; 85306

== ENCOUNTER 2023-06-21 08:51 | Outpatient (REF) | payer BC, SELFPAY ==
--- NOTE | ~2023-06-21 | MM_ITS ---
EXAMINATION: MM SCREENING DIGITAL BREAST TOMOSYNTHESIS, BILATERAL CLINICAL INFORMATION: Screening. Asymptomatic. COMPARISON: Mammography: This study is compared with prior exams dating back to 2019. TECHNIQUE: Digital breast tomosynthesis is performed in both the craniocaudal and mediolateral oblique views along with computer-aided detection (CAD). Synthesized 2D images are generated from the tomosynthesis. FINDINGS: The breasts are heterogeneously dense, which may obscure small masses (ACR BI-RADS breast composition Category c). There are no significant masses, abnormal calcifications, or other abnormalities. There are 2 tissue markers in the upper outer quadrant of the right breast from prior benign percutaneous biopsies. A few, benign calcifications are present in the vicinity of these 2 tissue markers. MM/MM tomosynthesis screening BI IMPRESSION: No mammographic evidence of malignancy. ASSESSMENT: BI-RADS BI-RADS 2 - Benign Findings RECOMMENDATION: Routine annual mammography screening. 1 year F/U This examination should not preclude the clinical evaluation of a suspicious palpable abnormality. This patient's information was entered into a reminder system with a target due date for their next mammogram.
== END 2023-06-21 08:52 | disposition home or self-care (01) ==
LOC: HO.MAMMO 08:51
PROVIDERS: PCP Internal Medicine; Visit Provider Internal Medicine
DX: Z12.31 Encounter for screening mammogram for malignant neoplasm of breast (principal)
CPT/HCPCS: 77063; 77067

== ENCOUNTER → 2023-06-21 09:00 | Outpatient (BNV) | payer BC, SELFPAY | PROVIDERS: PCP Internal Medicine; Visit Provider Radiology Diagnostic Radiology | DX: Z12.31 Encounter for screening mammogram for malignant neoplasm of breast (principal) | CPT/HCPCS: 77063; 77067 ==

== ENCOUNTER → 2023-12-28 12:06 | Outpatient (RCR) | payer BC, SELFPAY ==
[2020-07-14 14:32] VITALS: BP 125/73; PULSE 58; RESP 12; TEMP 37.1; O2SAT 100; BMI 22.9
--- NOTE | 2020-07-14 15:13 | PM.HEMONCCN ---
Subjective - Subjective Chief complaint: Consult for: History of DVT during , 14 years ago. Patient: new to practice Consult date: 07/14/20 Requesting Physician: Delfino. Primary Care Provider: Adela Zurita MD Medical Summary: DIAGNOSIS: DVT, during , 14 years ago. Protein S deficiency. Heterozygous factor 5 Leiden mutation. HPI - Consult Narrative Narrative: Yamileth Cummings is a pleasant 39 year old lady, who tells me that when she was 7 months with her daughter, who is 14 now, she had a right lower extremity DVT, for which she was admitted here. Ultrasound of the right leg from 05/09/2006 revealed: Acute clot in two peroneal veins below the popliteal vein in calf area. The right common, superficial femoral, popliteal and greater saphenous veins are widely patent. She was started on Lovenox. She took warfarin after delivery. Her INR level was always fluctuating. She finally stopped taking it in November. Repeat ultrasound From 12/05/2006: Unremarkable venous duplex examination of the right lower extremity deep venous system, without deep venous thrombosis seen. She recently saw her primary for a physical. They decided to proceed with the hypercoagulable workup. She was noted to have protein S deficiency and heterozygous factor 5 Leiden mutation. She has been referred here for further evaluation. ROS: Review of Systems - Constitutional Reports system reviewed and no additional complaints, except as documented - Eyes Reports system reviewed and no additional complaints, except as documented - ENT Reports system reviewed and no additional complaints, except as documented - Cardiovascular Reports system reviewed and no additional complaints, except as documented - Respiratory Reports no additional respiratory complaints - Gastrointestinal Reports system reviewed and no additional complaints, except as documented - Genitourinary Reports no additional female genitourinary complaints - Musculoskeletal Reports system reviewed and no additional complaints, except as documented - Integumentary/Breasts Skin/Breast: Reports no additional skin complaints - Neurologic Reports system reviewed and no additional complaints, except as documented - Psychiatric Reports system reviewed and no additional complaints, except as documented - Endocrine Reports no additional endocrine complaints - Hematologic/Lymphatic Reports system reviewed and no additional complaints, except as documented - Allergic/Immunologic Reports system reviewed and no additional complaints, except as documented Oncology Screenings - ECOG Performance Status ECOG Performance Status: 0 [facility] Medical History: Medical History (Last Updated 06/23/20 @ 00:38 by Martha Cobb MD) Hx of deep vein thrombosis during Protein S deficiency Functional capacity: independent ambulation Patient : No Family History: Family History (Last Updated 07/14/20 @ 14:37 by Hannah Gordon) Paternal Grandmother Breast cancer Mother Adenoid cystic carcinoma Maternal Grandmother Ovarian cancer Maternal Grandfather Prostate cancer Surgical History: Surgical History (Last Updated 07/14/20 @ 14:37 by Hannah Gordon) H/O breast biopsy History of wisdom tooth extraction Social History: Social History (Last Updated 07/14/20 @ 14:36 by Hannah Gordon) Alcohol History: Alcohol intake: former Alcohol History Details: Alcohol intake frequency: does not drink Tobacco History: Smoking Status: Never smoker Substance Use History: Use of substances other than those prescribed or required for medical reasons: No Nutrition Assessment: Patient : No Sex/Gender Assessment: Gender identity: female Smoking status: Never smoker Home Medications and Allergies Allergies Allergy/AdvReac Type Severity Reaction Status Date / Time No Known Allergies Allergy Unknown Verified 06/17/20 13:25 Physical Exam Vital signs: Vital Signs Temp 98.8 F 07/14/20 14:32 Pulse 58 07/14/20 14:32 Resp 12 07/14/20 14:32 BP 125/73 07/14/20 14:32 Pulse Ox 100 07/14/20 14:32 Intake & Output 07/13/20 07/14/20 07/14/20 18:59 06:59 18:59 Other: Weight 64.6 kg [place] Weight in Grams 00097 Weight 64.6 kg - Constitutional Present: no acute distress - Routine HEENT Exam Head: Present: normal inspection ENT: Present: mucous membranes moist - Routine Neck Exam Present: supple - Routine Respiratory Exam Present: CTAB - Routine Cardiovascular Exam Cardiovascular: Present: RRR, S1, S2 - Routine Abdominal Exam Present: soft, nontender - Routine Extremities Exam Present: nontender - Routine Skin Exam Present: intact - Routine Neurological Exam Present: alert, oriented X3 - Detailed Neurological Exam: Coma Scale Eye Opening: Spontaneous (4) Verbal Response: Oriented (5) Motor Response: Obeys commands (6) Isabel Coma Scale Total: 15 - Routine Psychiatric Exam Present: normal affect Assessment and Plan (1) Hx of deep vein thrombosis during Status: Acute DATABASE: From 06/17: CBC: WBC 5.7, HGB 13.9, HCT 41.5, PLT 292. CMP: Lytes WNL, blue 83, BUN 10, [employer] 0.83. Vince 8.9, a lb 4.9. LFTs: 1.3/56/20/19. This is a pleasant 39-year-old lady with a history of DVT 14 years ago while she was 7 months with her 1st daughter. She recently saw her primary care physician. A workup for hypercoagulable state was initiated. She was noted to have protein S deficiency. Protein S activity 23%. Protein S antigen 60%. Free protein S antigen 54%. She was also noted to have heterozygous factor 5 Leiden mutation. Her initial episode was during her . She has not had any recurrent episodes of thromboembolism, which is reassuring. PLAN: She does not need any treatment right now. However I did advise her to use travel prophylaxis especially for travel more than 5 hours. She will keep me posted. She will return in 3 months for a follow-up visit. Thank you, CC: Dr. Cobb.
--- NOTE | 2020-07-14 16:25 | MHC.HEMONCMA ---
Pt presents for consult on DVT during 14 years ago. History reviewed and pt to return in a month.
[2020-07-17 03:36] LABS: Protein C Activity 103 % (70-180)
--- NOTE | 2020-08-06 10:41 | HO.HEMONCTE1 ---
Hem[facility]Onc Clinic Telehealth - Telehealth Location of Provider rendering services: Hem/Onc office. Location of Patient: At Work. Patient Identification confirmed using: Name, : Yes Telehealth Method: Via Telephone. Patient verbally consented to treatment: Yes. Patient verbally consented to billing insurance company: Yes Patient informed of any privacy concerns related to visit: Yes Medical Summary - Medical Summary Date of Service: 08/06/20 Chief complaint: Follow-up for: History of DVT. Medical Summary: DIAGNOSIS: DVT, during , 14 years ago. Protein S deficiency. Heterozygous factor 5 Leiden mutation. Interval History Interval history: Yamileth Cummings is a pleasant 39 year old lady, with whom a tele visit was held. She tells me she has been doing very well. She denies any recent symptoms of leg swelling chest pain or trouble breathing. ROS: She denies easy fatigability. No cough no sputum. Denies abdominal pain nausea vomiting heartburn indigestion. Bowels are working without any gross blood in it. Enjoys a good appetite. Her weight is stable. She is in good spirits. Rest of the review of systems is unremarkable. Previous history: She tells me that when she was 7 months with her daughter, who is 14 now, she had a right lower extremity DVT, for which she was admitted here. Ultrasound of the right leg from 05/09/2006 revealed: Acute clot in two peroneal veins below the popliteal vein in calf area. The right common, superficial femoral, popliteal and greater saphenous veins are widely patent. She was started on Lovenox. She took warfarin after delivery. Her INR level was always fluctuating. She finally stopped taking it in November. Repeat ultrasound From 12/05/2006: Unremarkable venous duplex examination of the right lower extremity deep venous system, without deep venous thrombosis seen. She recently saw her primary for a physical. They decided to proceed with the hypercoagulable workup. She was noted to have protein S deficiency and heterozygous factor 5 Leiden mutation. Review of Systems - Constitutional Reports no additional constitutional complaints - Eyes Reports no additional eye complaints - ENT Reports no additional ear, nose, mouth, and throat complaints - Cardiovascular Reports no additional cardiovascular complaints - Respiratory Reports no additional respiratory complaints - Gastrointestinal Reports no additional gastrointestinal complaints - Genitourinary Reports no additional female genitourinary complaints - Musculoskeletal Reports no additional musculoskeletal complaints - Integumentary/Breasts Skin/Breast: Reports no additional skin complaints - Neurologic Reports no additional neurologic complaints - Psychiatric Reports no additional psychiatric complaints - Endocrine Reports no additional endocrine complaints - Hematologic/Lymphatic Reports no additional hematologic/lymphatic complaints - Allergic/Immunologic Reports no additional allergic/immunologic complaints Oncology Screenings - ECOG Performance Status ECOG Performance Status: 0 Home Medications and Allergies Allergies Allergy/AdvReac Type Severity Reaction Status Date / Time No Known Allergies Allergy Unknown Verified 06/17/20 13:25 Exam Vital signs: Vital Signs Temp 98.8 F 07/14/20 14:32 Pulse 58 07/14/20 14:32 Resp 12 07/14/20 14:32 BP 125/73 07/14/20 14:32 Pulse Ox 100 07/14/20 14:32 Weight 64.6 kg Body Mass Index 22.9 - Constitutional Present: no acute distress - Routine HEENT Exam Head: Present: normal inspection Eye: Present: normal appearance ENT: Present: mucous membranes moist - Routine Neck Exam Present: full ROM - Routine Respiratory Exam Present: CTAB - Routine Cardiovascular Exam Cardiovascular: Present: RRR, S1, S2 - Routine Abdominal Exam Present: soft, nontender - Routine Rectal Exam Patient deferred: digital exam - Routine Extremities Exam Present: nontender - Routine Back/Spine/Pelvis Exam Back/Spine: Present: full ROM - Routine Skin Exam Present: intact - Routine Neurological Exam Present: alert, oriented X3 - Detailed Neurological Exam: Coma Scale Eye Opening: Spontaneous (4) - Routine Psychiatric Exam Present: normal affect Data - Labs Labs: 07/14/20 15:18 Protein C Activity Reflex Ag Routine Prothrombin [id number] Routine Laboratory Last Values Protein C Antigen TNP 07/14/20 15:18 Protein C Activity 103 % (70-180) 07/14/20 15:18 Prothrombin [id number] Mut SEE NOTE 07/14/20 15:18 Prothrombin Mut Interp SEE NOTE 07/14/20 15:18 Progress Note: A/P (1) Hx of deep vein thrombosis during Status: Acute Assessment and plan: This is a pleasant 39-year-old lady with a history of DVT 14 years ago while she was 7 months with her 1st daughter. She recently saw her primary care physician. A workup for hypercoagulable state was initiated. She was noted to have protein S deficiency. Protein S activity 23%. Protein S antigen 60%. Free protein S antigen 54%. She was also noted to have heterozygous factor 5 Leiden mutation. Her initial episode was during her . She has not had any recurrent episodes of thromboembolism, which is reassuring. PLAN: She does not need any treatment right now. However I did advise her to use travel prophylaxis especially for travel more than 5 hours. She will keep me posted. I will repeat her protein S level for confirmation. Will check a prothrombin mutation to complete the hypercoagulable workup. Will send paperwork to the [place] office for her convenience, so she can have her labs drawn there. She will return in 1 month for a tele visit. 25 minutes were spent coordinating her care including the tele visit, review of labs, and counseling the patient. Thank you, CC: Dr. Cobb. - Time Spent With Patient Total time spent is greater than 50% in coordination of care (as documented) at patient's floor/unit and/or counseling patient: 25 - 35 minutes
--- NOTE | 2020-08-06 13:52 | MHC.HEMONCMA ---
Pt had a telehealth visit for DVT during . History reviewed prior to call with pt. Pt to return in a month.
== END | disposition home or self-care (01) ==
LOC: HO.ONC 07-14 13:56
PROVIDERS: PCP Internal Medicine; Visit Provider Internal Medicine Medical Oncology
DX: D68.59 Other primary thrombophilia (principal); D68.51 Activated protein C resistance; Z86.718 Personal history of other venous thrombosis and embolism
CPT/HCPCS: 36415; 81240; 85302; 85303

== ENCOUNTER 2024-01-12 10:48 | Outpatient (AMB) | payer BC, SELFPAY ==
--- NOTE | 2024-01-12 10:47 | A.OFFPC_ITS ---
Intake Visit Reasons: Referral to Psy Intake Note: Pt is having a teleehealth visit to request referral for psych due to unexpected passing on 12/19/23 Allergies No Known Allergies Allergy (Unknown, Verified 01/12/24 11:01) Medication List - Last Reconciled 01/12/24 by Martha Cobb MD apixaban (Eliquis) 2.5 mg PO BID multivitamin 1 tab PO DAILY Tobacco use date assessed: 01/12/24 Dental Screening Dental Screen Date: 01/12/24 Did you have a dental visit in the last 12 months?: Yes Did you have a dental problem in the last 6 months where you did not have access to dental care?: No Was dental information given to patient?: Patient has dentist HPI Referral to Ps HPI Details 43-year-old lady, here today requesting to have an FMLA completed. Her recently unexpectedly, due to an accident 12/19/2023. She is requesting referral for therapy. She has 2 children who also are receiving counseling . She has good family support during this difficult time , but is still trying to adjust to her sudden loss. 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 She is requesting a continuous leave , starting 01/15/24 to 02/13/24 to see a counselor, be available to to support her children, and take charge of her family's finances and legal matters with regards to her 's sudden passing. Afterwards , she is requesting an intermittent leave 02/14/24 to 10/28/24 . [facility] Medical History Recent bereavement History of vitamin D deficiency History of deep venous thrombosis (DVT) of distal vein of right lower extremity Protein S deficiency Hx of deep vein thrombosis during Surgical History H/O breast biopsy History of wisdom tooth extraction Family History Paternal Grandmother Breast cancer Mother Adenoid cystic carcinoma Maternal Grandmother Ovarian cancer Maternal Grandfather Prostate cancer Deep vein blood clot of left lower extremity Maternal Aunt Factor 5 Leiden mutation, heterozygous Maternal Uncle Factor 5 Leiden mutation, heterozygous Social History Household Members: Spouse and Children Housing: House Alcohol intake: former Patient Tobacco Use Status: Never used Tobacco e-Cigarette/Vaping Use: Never Used Second Hand Smoke Exposure: No service: No Current occupational status: employed 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 1. Little interest or pleasure in doing things: more than half the days 2. Feeling down, depressed, or hopeless: several days 3. Trouble falling or staying asleep, or sleeping too much: several days 4. Feeling tired or having little energy: not at all 5. Poor appetite or overeating: several days 6. Feeling bad about yourself - or that you are a failure or have let yourself or your family down: not at all 7. Trouble concentrating on things, such as reading the newspaper or watching television: more than half the days 8. Moving or speaking so slowly that other people could have noticed. Or the opposite - being so fidgety or restless that you have been moving around a lot more than usual: not at all 9. Thoughts that you would be better off or of hurting yourself in some way: not at all Total score: 7 Depression Screening Interpretation: Positive (Seeking therapy to help with 's sudden passing. Does not want to start medication at present time) Depression Screening Done: Yes 30440 - PHQ-9 Billing: Yes Source: Developed by Drs. Carlos Landon, Charlie De and colleagues, with an educational harmeet from [employer] Thrive Questionnaire Date Thrive assessed: 01/26/23 AUDIT C Alcohol Use Questionnaire (AUDIT-C) 1. How often do you have a drink containing alcohol?: Never Total Score: 0 DARRON-7 AMB Questionnaire DARRON-7 Date DARRON - 7 assessed: 01/26/23 Source: Developed by Drs. Carlos Landon, Charlie De and colleagues, with an educational harmeet from [employer] Review of Systems Const Denies body aches, Denies difficulty sleeping (takes Melatonin , which has been helping), Denies fever(s), Denies lethargy and Reports poor appetite Eyes Denies change in vision ENT Reports no additional complaints Card Denies chest pain at rest, Denies chest pain with activity, Reports pedal edema (Towards end of the day, resolves with elevation of legs), Denies irregular heart rhythm and Denies lightheadedness Resp Reports no additional complaints GI Denies abdominal pain, Denies melena, Denies hematochezia, Denies change in bowel habits, Denies heartburn and Denies nausea Reports no additional complaints Musc Reports no additional complaints Neuro Reports no additional complaints Psych Reports as per HPI Endo Reports no additional complaints Physical exam (Primary Care) Tobacco/Smoking Status: Tobacco use Status Tobacco use date assessed 01/12/24 01/12/24 10:51 Patient Tobacco Use Status Never used Tobacco 01/12/24 10:47 e-Cigarette/Vaping Use Never Used 01/12/24 10:47 Depression Screening Interpretation: Positive (Seeking therapy to help with 's sudden passing. Does not want to start medication at present time) Thrive Assessment: Date of Thrive Assessment Date Thrive assessed 01/26/23 01/12/24 10:47 Telehealth Telehealth Telehealth Platform: [employer] Location of provider rendering services: practice address Location of patient: address on file Patient Identification confirmed using: Name, : Yes Telehealth method: video Patient verbally consented to treatment: Yes Patient verbally consented to billing insurance company: Yes Patient informed of any privacy concerns related to visit: Yes Minutes spent on Phone/Video with Pt.: 15 Assessment and Plan Assessment & Plan (1) Recent bereavement: Code(s): Z63.4 - Disappearance and of family member Plan: Referred to Lita Esquivel, for assistance in getting in for therapy, has a lot of family support, does not want to start any medications at present time. Taking melatonin at bedtime to help her sleep which has been helping. Patient requesting referral to a therapist outside at [facility] however Requesting FMLA form to be completed, will be dropping off form at the clinic either today or Monday Coding Level of Care Code Tele Est Pt Level 3 (00000) Diagnoses Recent bereavement Z63.4
== END 2024-01-12 12:29 | disposition home or self-care (01) ==
LOC: HO.HMGC 10:48
PROVIDERS: PCP Internal Medicine; Visit Provider Internal Medicine
DX: F43.20 Adjustment disorder, unspecified (principal); Z63.4 Disappearance and death of family member
CPT/HCPCS: 99213

== ENCOUNTER 2024-04-10 15:18 | Outpatient (AMB) | payer BC, SELFPAY ==
--- NOTE | 2024-04-10 15:25 | MHC.OFFVIS ---
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 No complaints. Last Pap/HPV was negative in 03/22 Last Mammogram was BI-RADS 2 in 06/24 No previous screening colonoscopy PFSH Medical History Recent bereavement History of vitamin D deficiency History of deep venous thrombosis (DVT) of distal vein of right lower extremity Protein S deficiency Hx of deep vein thrombosis during Surgical History H/O breast biopsy History of wisdom tooth extraction Family History Paternal Grandmother Breast cancer Mother Adenoid cystic carcinoma Maternal Grandmother Ovarian cancer Maternal Grandfather Prostate cancer Deep vein blood clot of left lower extremity Maternal Aunt Factor 5 Leiden mutation, heterozygous Maternal Uncle Factor 5 Leiden mutation, heterozygous Social History Household Members: Spouse and Children Housing: House Alcohol intake: former Patient Tobacco Use Status: Never used Tobacco e-Cigarette/Vaping Use: Never Used Second Hand Smoke Exposure: No service: No Current occupational status: employed 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 Gender identity: Female Cognitive needs: No Hearing needs: No Vision needs: No Female Reproductive History Menstrual Age of Menarche: 11 Duration of menses: 3-5 days Date of last menstrual period: 04/01/24 Total pregnancies: 1 Full term: 1 Date of last pap smear: 03/29/22 (negative pap smear, negative hpv) Date of Mammogram: 06/21/23 (bi rad 2) Review of Systems Const All systems reviewed & are unremarkable except as noted in HPI and below Card Reports as per HPI Resp Reports as per HPI GI Reports as per HPI and Reports no additional complaints Reports as per HPI Physical Exam Vital Signs: Last Vital Signs BP 98/60 04/10/24 15:32 BMI result Body Mass Index 23.2 Const General: cooperative, healthy appearing and comfortable Chest Chest palpation & inspection: normal inspection of the chest and normal palpation of entire chest wall Breast/axilla inspection: normal inspection of the breasts and normal inspection of the axillae Breast/axilla palpation: normal palpation of the breasts, normal palpation of the axillae and no axillary lymphadenopathy Resp Effort & Inspection: normal respiratory effort Auscultation: clear to auscultation bilaterally Percussion: percussion normal Cardio Palpation: normal PMI Rate: regular rate Rhythm: regular rhythm Heart sounds: no murmurs and no rubs Peripheral pulses: Peripheral pulses 2+ throughout GI Inspection: Yes normal to inspection Palpation (GI): Soft to palpation, nontender, no guarding, not rigid and No hepatosplenomegaly present Percussion: Yes normal to percussion Auscultation: normal bowel sounds Rectal Exam - Female: deferred General: Yes bladder normal to palpation External Female Exam: No lesion Speculum Exam - Vagina: normal appearance of the vagina, normal palpation, normal vaginal discharge and not erythematous Speculum Exam - Cervix: normal appearance of the cervix and normal palpation Bimanual exam- vagina & uterus: normal bimanual exam, normal palpation, uterine size normal, bladder normal to palpation, consistency normal and normal palpation Bimanual Exam- Adnexa, other: normal adnexae, no masses and no tenderness Assessment & Plan Assessment & Plan (1) Well woman exam: Code(s): Z01.419 - Encounter for gynecological examination (general) (routine) without abnormal findings Category: Medical Plan: Cotesting not indicated this year. Mammogram ordered. Counseled the patient about the recommended dietary allowance of 1000 mg of Calcium & 600 IU of vitamin D. GI referral placed for screening colonoscopy The patient was instructed to perform monthly self-breast exams and to schedule an annual exam in a year; All questions answered and the patient verbalized understanding. Instructed the patient to schedule annual exam in a year Orders: Orders MM tomosynthesis screening BI Today Z12.31 - Encounter for screening mammogram for malignant neoplasm of breast Referrals Gastroenterology Referral Z12.11 - Encounter for screening for malignant neoplasm of colon Coding Level of Care Code Est Pt Prev Care 40-64y([id number]) Diagnoses Well woman exam Z01.419
[2024-04-10 15:32] VITALS: BP 98/60; BMI 23.2
== END 2024-04-10 15:57 | disposition home or self-care (01) ==
PROVIDERS: PCP Internal Medicine; Visit Provider Obstetrics & Gynecology
DX: Z01.419 Encounter for gynecological examination (general) (routine) without abnormal findings (principal)
CPT/HCPCS: 99396

== ENCOUNTER → 2024-04-10 15:18 | Outpatient (BNVA) | payer BC, SELFPAY | PROVIDERS: PCP Internal Medicine; Visit Provider Obstetrics & Gynecology ==

== ENCOUNTER 2024-05-15 13:01 | Outpatient (AMB) | payer BC, SELFPAY ==
[2024-05-15 13:06] VITALS: BP 108/68; PULSE 64; O2SAT 99; BMI 22.8
--- NOTE | 2024-05-15 13:06 | A.OFFPC_ITS ---
Vital Signs 05/15/24 13:06 Height 5 ft 6 in Weight 141 lb 8 oz BMI 22.8 BP 108/68 Blood Pressure Location Lt brachial Position Sitting Pulse 64 Pulse Source Pulse Oximeter Pulse Oximetry (%) 99 Oxygen Delivery Method Room Air Intake Visit Reasons: PE Intake Note: Patient is here today for her annual physical. Last mammogram 06/21/23 Last pap smear 03/30/22 Immunizations are up to date. Allergies No Known Allergies Allergy (Unknown, Verified 05/15/24 13:44) Medication List - Last Reconciled 05/15/24 by Martha Cobb MD apixaban (Eliquis) 2.5 mg PO BID multivitamin 1 tab PO DAILY Tobacco use date assessed: 05/15/24 Dental Screening Dental Screen Date: 05/15/24 Did you have a dental visit in the last 12 months?: Yes Did you have a dental problem in the last 6 months where you did not have access to dental care?: No Was dental information given to patient?: Patient has dentist HPI PE HPI Details 43-year-old lady here today for physical exam. Last mammogram 06/21/23 with benign findings, up-to-date with her pap smear done 03/30/22 with negative results, and immunizations are up to date. She has been diagnosed with protein S deficiency, history of DVT, currently on apixaban 5 mg taken 1 tablet twice a day, denies any abnormal bleeding tendencies. Complains of having numbness and tingling in fingers of both hands especially when she is outside during cold weather. [facility] Medical History (Updated 05/15/24 @ 13:58 by Martha Cobb MD) Raynaud's phenomenon Recent bereavement History of vitamin D deficiency History of deep venous thrombosis (DVT) of distal vein of right lower extremity Protein S deficiency Hx of deep vein thrombosis during Surgical History H/O breast biopsy History of wisdom tooth extraction Family History Paternal Grandmother Breast cancer Mother Adenoid cystic carcinoma Maternal Grandmother Ovarian cancer Maternal Grandfather Prostate cancer Deep vein blood clot of left lower extremity Maternal Aunt Factor 5 Leiden mutation, heterozygous Maternal Uncle Factor 5 Leiden mutation, heterozygous Social History Household Members: Spouse and Children Housing: House Alcohol intake: former Patient Tobacco Use Status: Never used Tobacco e-Cigarette/Vaping Use: Never Used Second Hand Smoke Exposure: No service: No Current occupational status: employed 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 Mack for routine Pap and pelvic exam Questionnaire PHQ-9 Over the last 2 weeks, how often have you been bothered by any of the following problems? 1. Little interest or pleasure in doing things: not at all 2. Feeling down, depressed, or hopeless: not at all 3. Trouble falling or staying asleep, or sleeping too much: not at all 4. Feeling tired or having little energy: not at all 5. Poor appetite or overeating: nearly every day 6. Feeling bad about yourself - or that you are a failure or have let yourself or your family down: not at all 7. Trouble concentrating on things, such as reading the newspaper or watching television: not at all 8. Moving or speaking so slowly that other people could have noticed. Or the opposite - being so fidgety or restless that you have been moving around a lot m ore than usual: not at all 9. Thoughts that you would be better off or of hurting yourself in some way: not at all Total score: 3 Depression Screening Interpretation: Negative Depression Screening Done: Yes 85115 - PHQ-9 Billing: Yes Source: Developed by Drs. Carlos Landon, Soledad Herman, Charlie Spencer and colleagues, with an educational harmeet from [employer]. Thrive Questionnaire Date Thrive assessed: 05/15/24 I am a: Patient What is your living situation today?: I have a steady place to live Within the past 12 months, did the food you bought not last and you didn't have the money to get more?: Never true Within the past 12 months, did you worry whether your food would run out before you got money to buy more?: Never true Do you have trouble paying for medicines?: No Do you have trouble getting transportation to medical appointments?: No Do you have trouble paying your heating and electricity bill?: No Do you have trouble taking care of your child, family member or friend?: No Do you have trouble with day-to-day activities such as bathing, preparing meals, shopping, managing finances, etc.?: No Are you currently unemployed and looking for a job?: No Are you interested in more education?: No Please select the resources that you would like help with: None Currently or been in a relationship where the following occur: No concerns reported THRIVE Score: 0 AUDIT C Alcohol Use Questionnaire (AUDIT-C) 1. How often do you have a drink containing alcohol?: Monthly or less 2. How many drinks containing alcohol do you have on a typical day when you are drinking?: 1 or 2 3. How often do you have six or more drinks on one occasion?: Never Total Score: 1 Score Reviewed/Action Taken: Yes DARRON-7 AMB Questionnaire DARRON-7 Date DARRON - 7 assessed: 05/15/24 Feeling nervous, anxious, or on edge: 0 = Not at all Not being able to stop or control worryin = Not at all Worrying too much about different things: 0 = Not at all Trouble relaxin = Not at all Being so restless that it is hard to sit still: 0 = Not at all Becoming easily annoyed or irritable: 0 = Not at all Feeling afraid as if something awful might happen: 0 = Not at all Total DARRON-7 score (0-4 normal; 5-9 mild; 10-14 moderate; 15-21 severe): 0 Source: Developed by Drs. Carlos Landon, Soledad Herman, Charlie Spencer and colleagues, with an educational harmeet from [employer]. DARRON-7 Assessment Billing DARRON-7 Assessment Tool: DARRON-7 Assessment 65458 Review of Systems Const Denies body aches, Denies difficulty sleeping (takes Melatonin , which has been helping), Denies fever(s), Denies lethargy and Reports poor appetite Eyes Denies change in vision ENT Reports no additional complaints Card Reports acrocyanosis (when exposed to cold temperatures), Denies chest pain at rest, Denies chest pain with activity, Reports pedal edema (Towards end of the day, resolves with elevation of legs), Denies irregular heart rhythm and Denies lightheadedness Resp Reports no additional complaints GI Denies abdominal pain, Denies melena, Denies hematochezia, Denies change in bowel habits, Denies heartburn and Denies nausea Reports no additional complaints Musc Reports no additional complaints Skin/Breast Denies breast pain, Denies breast mass, Denies rash and Denies unusual bruising Neuro Reports no additional complaints Psych Reports as per HPI Endo Reports no additional complaints Ger/Lymph Reports as per HPI Aller/Immun Reports no additional complaints Physical exam (Primary Care) Vital Signs: Last Vital Signs Pulse 64 05/15/24 13:06 BP 108/68 05/15/24 13:06 Pulse Ox 99 05/15/24 13:06 Oxygen Delivery Method Room Air 05/15/24 13:06 BMI result Body Mass Index 22.8 Tobacco/Smoking Status: Tobacco use Status Tobacco use date assessed 05/15/24 05/15/24 13:08 Patient Tobacco Use Status Never used Tobacco 05/15/24 13:08 e-Cigarette/Vaping Use Never Used 05/15/24 13:08 PHQ-9: PHQ-9 Score PHQ-9: Total score 3 05/15/24 14:21 Depression Screening Interpretation: Negative Thrive Assessment: Date of Thrive Assessment Date Thrive assessed 05/15/24 05/15/24 13:08 Currently or been in a relationship where the following occur: No concerns reported Const Other: Alert oriented x3, no acute distress noted, ambulatory normal gait Orientation/consciousness: patient oriented x3 HENWV Head: Yes normocephalic Ears: hearing grossly normal bilaterally, external ears normal, TM's normal bilaterally and EAC's normal General nose exam: Normal external nose present Face and sinus: Yes face symmetric Mouth: Normal oral and palatal mucosa present, oropharynx normal and moist mucous membranes Eyes General: appearance normal, both eyes and all related structures Neck Other: Supple with no lymphadenopathy, thyroid gland nonpalpable Chest Chest palpation & inspection: normal inspection of the chest Breast/axilla inspection: normal inspection of the breasts Breast/axilla palpation: normal palpation of the breasts Resp Effort & Inspection: normal respiratory effort and able to speak in complete sentences Auscultation: clear to auscultation bilaterally Cardio Other: S1-S2 present regular rate and rhythm GI Other: Normal bowel sounds, soft, nontender with no mass palpated General: Yes no CVA tenderness and Yes deferred (sees ob-senior procurement specialist) Back/Spine/Pelvis Back: no CVA tenderness and No back tenderness Skin General skin exam: no rashes or lesions noted Neuro General: patient oriented x3, gait normal, moves all extremities, Normal light touch and pain sensation and no focal motor deficits Extrem Other: Varicose veins noted on left lower extremity, nonthrombosed, no calf tenderness, no pedal edema noted Psych Appearance: grossly normal Mental Status: mental status grossly normal Speech and movement: Normal speech and movement present Affect: normal affect Attitude: cooperative Thought process: Normal thought process present Thought content: Normal thought content present Coding Level of Care Code Est Pt Prev Care 40-64y(35309) Diagnoses Annual visit for general adult medical examination with abnormal findings Z00. Protein S deficiency D68.59 History of vitamin D deficiency Z86.39 Encounter for screening for malignant neoplasm of colon Z12.11 Raynaud's phenomenon I73.00 Additional Codes DARRON-7 Assessment Billing - DARRON-7 Assessment Tool: DARRON-7 Assessment 82526 ([id number]) PHQ-9 - 51643 - PHQ-9 Billing: Yes ([id number]) Assessment & Plan Assessment & Plan (1) Annual visit for general adult medical examination with abnormal findings: Code(s): Z00.01 - Encounter for general adult medical examination with abnormal findings Plan: Will check appropriate labs. Recommended dental visit every 6 months and regular eye exams, at least every 2 years. Take adequate calcium in diet and vitamin-D 3 at 2000 IU per cap once a day, in addition to weight-bearing exercises to help maintain good muscle tone and weight control. Instructed to do self-breast exam, and continue with yearly mammogram, . Sees Dr. Mack for her routine Pap and pelvic exam currently up-to-date. Up-to-date with her vaccinations, referred to GI Clinic for her initial screening colonoscopy (2) Protein S deficiency: Code(s): D68.59 - Other primary thrombophilia Category: Medical Plan: Continued on apixaban 2.5 mg 1 tablet twice a day (3) History of vitamin D deficiency: Code(s): Z86.39 - Personal history of other endocrine, nutritional and metabolic disease Category: Medical Plan: Will check vitamin-D level, advised to start taking [id number] vitamin D3 2000 units daily (4) Encounter for screening for malignant neoplasm of colon: Code(s): Z12.11 - Encounter for screening for malignant neoplasm of colon Plan: Referred to GI Clinic for screening colonoscopy (5) Raynaud's phenomenon: Code(s): I73.00 - Raynaud's syndrome without gangrene Category: Medical Plan: * wear warm clothes during cold weather, especially on your hands and feet. * try to avoid sudden changes in temperature. * exercise regularly ? this helps improve circulation. Orders: Orders Lipid Panel 05/15/24 D68.59 - Other primary thrombophilia, I73.00 - Raynaud's syndrome without gangrene, Z00.01 - Encounter for general adult medical examination with abnormal findings, Z86.39 - Personal history of other endocrine, nutritional and metabolic disease, Z86.718 - Personal history of other venous thrombosis and embolism, Z87.59 - Personal history of other complications of , childbirth and the puerperium Vitamin D 25-OH Total 05/15/24 D68.59 - Other primary thrombophilia, I73.00 - Raynaud's syndrome without gangrene, Z00.01 - Encounter for general adult medical examination with abnormal findings, Z86.39 - Personal history of other endocrine, nutritional and metabolic disease, Z86.718 - Personal history of other venous thrombosis and embolism, Z87.59 - Personal history of other complications of , childbirth and the puerperium Complete Blood Count Auto Diff 05/15/24 D68.59 - Other primary thrombophilia, I73.00 - Raynaud's syndrome without gangrene, Z00.01 - Encounter for general adult medical examination with abnormal findings, Z86.39 - Personal history of other endocrine, nutritional and metabolic disease, Z86.718 - Personal history of other venous thrombosis and embolism, Z87.59 - Personal history of other complications of , childbirth and the puerperium Glucose Fasting 05/15/24 D68.59 - Other primary thrombophilia, I73.00 - Raynaud's syndrome without gangrene, Z00.01 - Encounter for general adult medical examination with abnormal findings, Z86.39 - Personal history of other endocrine, nutritional and metabolic disease, Z86.718 - Personal history of other venous thrombosis and embolism, Z87.59 - Personal history of other complications of , childbirth and the puerperium Magnesium 05/15/24 D68.59 - Other primary thrombophilia, I73.00 - Raynaud's syndrome without gangrene, Z00.01 - Encounter for general adult medical examination with abnormal findings, Z86.39 - Personal history of other endocrine, nutritional and metabolic disease, Z86.718 - Personal history of other venous thrombosis and embolism, Z87.59 - Personal history of other complications of , childbirth and the puerperium Referrals Gastroenterology Referral Z12.11 - Encounter for screening for malignant neoplasm of colon
== END 2024-05-15 14:10 | disposition home or self-care (01) ==
PROVIDERS: PCP Internal Medicine; Visit Provider Internal Medicine
DX: Z00.01 Encounter for general adult medical examination with abnormal findings (principal); D68.59 Other primary thrombophilia; Z86.39 Personal history of other endocrine, nutritional and metabolic disease; Z12.11 Encounter for screening for malignant neoplasm of colon; I73.00 Raynaud's syndrome without gangrene

== ENCOUNTER 2024-05-15 13:01 | Outpatient (REF) | payer BC, SELFPAY ==
[2024-05-15 16:06] LABS: MANUAL DIFF FLAG NO
[2024-05-15 16:08] LABS: Basophils Percent Auto 0.4 % (0-2); Eosinophils Percent Auto 0.5 % (0-4); Hematocrit 39.1 % (37.0-47.0); Hemoglobin 13.5 g/dl (12.0-16.0); Imm Gran Abs Auto 0.02 X10*3/uL (0.00-0.03); Imm Gran Pct Auto 0.3 % (0.0-0.4); Lymphocytes Absolute Auto 3.4 X10*3/uL (1.2-4.9); Lymphocytes Percent Auto 47.1 % (20-40); Mean Corpuscular HGB Conc 34.5 g/dl (31.0-35.0); Mean Corpuscular Hemoglobin 31.5 pg (27.0-33.0); Mean Corpuscular Volume 91.4 fL (80.0-98.0); Monocytes Absolute Auto 0.7 X10*3/uL (0.1-1.2); Monocytes Percent Auto 9.6 % (2-11); Neutrophils Absolute Auto 3.1 x10*3/uL (2.0-8.3); Neutrophils Percent Auto 42.1 % (45-73); Platelet Count 296 X10*3/uL (160-400); Red Blood Count 4.28 X10*6/uL (4.20-5.50); Red Cell Distribution Width 12.4 % (11.0-16.0); White Blood Count 7.3 X10*3/uL (4.8-10.8)
[2024-05-15 17:13] LABS: Cholesterol 153 mg/dL (<200); Glucose Fasting 82 mg/dL (60-99); HDL Cholesterol 63 mg/dL (>40); LDL Cholesterol Calculated 80 mg/dL (<100); Magnesium 1.9 mg/dL (1.6-2.6); Triglycerides 52 mg/dL (<150)
[2024-05-15 17:25] LABS: Vitamin D 25-OH Total 101.3 ng/mL (>30)
== END 2024-05-15 13:02 | disposition home or self-care (01) ==
LOC: HO.HMGCLDS 13:01
PROVIDERS: PCP Internal Medicine; Visit Provider Internal Medicine
DX: Z00.01 Encounter for general adult medical examination with abnormal findings (principal); D68.59 Other primary thrombophilia; I73.00 Raynaud's syndrome without gangrene; Z86.39 Personal history of other endocrine, nutritional and metabolic disease; Z87.59 Personal history of other complications of pregnancy, childbirth and the puerperium; Z86.718 Personal history of other venous thrombosis and embolism; Z79.01 Long term (current) use of anticoagulants; Z13.1 Encounter for screening for diabetes mellitus
CPT/HCPCS: 36415; 80061; 82306; 82947; 83735; 85025; 96127

== ENCOUNTER 2024-06-26 15:23 | Outpatient (REF) | payer BC, SELFPAY | END 2024-06-26 15:24 | disposition home or self-care (01) | LOC: HO.MAMMO 15:23 | PROVIDERS: PCP Internal Medicine; Referring Provider Obstetrics & Gynecology; Visit Provider Internal Medicine | DX: Z12.31 Encounter for screening mammogram for malignant neoplasm of breast (principal) | CPT/HCPCS: 77063; 77067 ==

== ENCOUNTER → 2024-06-26 15:30 | Outpatient (BNV) | payer BC, SELFPAY | PROVIDERS: PCP Internal Medicine; Referring Provider Obstetrics & Gynecology; Visit Provider Internal Medicine | DX: Z12.31 Encounter for screening mammogram for malignant neoplasm of breast (principal) | CPT/HCPCS: 77063; 77067 ==

== ENCOUNTER 2024-07-15 08:56 | Outpatient (REF) | payer BC, SELFPAY ==
--- NOTE | ~2024-07-15 | US_ITS ---
EXAMINATION: MM DIAGNOSTIC DIGITAL BREAST TOMOSYNTHESIS, RIGHT Limited right breast ultrasound. CLINICAL INFORMATION: Comment from screening for oval mass in the right breast. COMPARISON: Mammography: Available priors on PACS. TECHNIQUE: Digital breast tomosynthesis is performed in both the craniocaudal and mediolateral oblique views along with computer-aided detection (CAD). Synthesized 2D images are generated from the tomosynthesis. FINDINGS: The breasts are heterogeneously dense, which may obscure small masses (ACR BI-RADS breast composition Category c). Oval mass in the lower outer right breast persists on additional imaging. No suspicious calcifications or other abnormal findings. Targeted color Doppler ultrasound demonstrates a simple to minimally complicated cyst at 7:00 6 cm from the nipple measuring 8 x 5 x 9 mm which correlates with the circumscribed oval mass and is benign. There is a simple to minimally complicated cyst at 8:00 6 cm from nipple measuring 7 x 9 x 6 mm US/US breast RT limited mamm only IMPRESSION: Simple cysts on ultrasound. Benign. ASSESSMENT: BI-RADS BI-RADS 2 - Benign Findings RECOMMENDATION: 1 year F/U Results were provided to the patient at time of visit by the technologist. This patient's information was entered into a reminder system with a target due date for their next mammogram. Electronically signed by: Hilaria Manuel DO 07/15/2024 10:00 AM EDT
--- OUTSIDE RECORDS SUMMARY | 2024-07-15 09:24 | XMS_ITS ---
Author Name [facility] Organization Unknown Care Team Organization Name Specialty Phone Email Start Date End Da giovanna [facility] the [facility] Up [facility] ([facility]) 03/15/2024
== END 2024-07-15 08:57 | disposition home or self-care (01) ==
LOC: HO.MAMMO 08:56
PROVIDERS: PCP Internal Medicine; Visit Provider Internal Medicine
DX: N64.89 Other specified disorders of breast (principal)
CPT/HCPCS: 76642; 77061; 77065

== ENCOUNTER → 2024-07-15 09:00 | Outpatient (BNV) | payer BC, SELFPAY | PROVIDERS: PCP Internal Medicine; Visit Provider Internal Medicine | DX: N63.13 Unspecified lump in the right breast, lower outer quadrant (principal) | CPT/HCPCS: 76642; 77061; 77065 ==

== ENCOUNTER 2024-10-30 08:40 | Outpatient (AMB) | payer BC, SELFPAY ==
--- OUTSIDE RECORDS SUMMARY | 2024-10-30 08:44 | XMS_ITS ---
Author Name [facility] Organization Unknown Care Team Organization Name Specialty Phone Email Start Date End Da giovanna [facility] Personnel Manager ([facility]) 03/15/2024
--- NOTE | 2024-10-30 08:51 | A.OFFVIS_ITS ---
Vital Signs 10/30/24 08:52 Height 5 ft 6 in Weight 143 lb BMI 23.1 BP 104/59 L Blood Pressure Location Lt brachial Position Sitting Pulse 63 Pulse Oximetry (%) 100 Oxygen Delivery Method Room Air Intake Visit Reasons: colo screening Intake Note: Patient new consult for pre Colonoscopy screening. Patient denies any GI issues. Licensing Specialist Required: No Accompanied by: Self / Same As Patient Allergies No Known Allergies Allergy (Unknown, Verified 10/30/24 08:51) HPI HPI colo screening: Details: Patient is a 44-year-old female with PMH of vitamin-D deficiency, Raynaud's and history of DVT on Apixaban. Referred by PCP for pre colonoscopy screening. This will be her first colonoscopy. She reports regular bowel movements, occurring approximately twice daily. She describes her stools as a combination of soft and formed, noting that the consistency can vary depending on her coffee intake. She denies any history of constipation, diarrhea, or stomach issues. She also denies any blood in her stools or abdominal pain. Yamileth mentions occasionally feeling full for extended periods after eating, particularly after a recent late dinner for her birthday. However, she does not consider this a significant concern. She denies any nausea, vomiting, or changes in appetite. Her weight has been stable in the 130s-140s range. She denies experiencing heartburn or difficulty swallowing. She has a history of deep vein thrombosis during 18 years ago and a superficial thrombosis two roldan ago. She was diagnosed with protein S deficiency and factor V Leiden, for which she is currently taking Eliquis and is followed by a business planning analyst. 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 [facility] Medical History (Updated 10/30/24 @ 09:05 by Lexy Méndez CNP) Colon cancer screening Raynaud's phenomenon Recent bereavement History of vitamin D deficiency History of deep venous thrombosis (DVT) of distal vein of right lower extremity Protein S deficiency Hx of deep vein thrombosis during Surgical History H/O breast biopsy History of wisdom tooth extraction Family History Paternal Grandmother Breast cancer Mother Adenoid cystic carcinoma Maternal Grandmother Ovarian cancer Maternal Grandfather Prostate cancer Deep vein blood clot of left lower extremity Maternal Aunt Factor 5 Leiden mutation, heterozygous Maternal Uncle Factor 5 Leiden mutation, heterozygous Social History Household Members: Spouse and Children Housing: House Alcohol intake: former Patient Tobacco Use Status: Never used Tobacco e-Cigarette/Vaping Use: Never Used Second Hand Smoke Exposure: No service: No Current occupational status: employed 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 Gender identity: Female Cognitive needs: No Hearing needs: No Vision needs: No Female Reproductive History Menstrual Age of Menarche: 11 Review of Systems Const Reports as per HPI ENT Reports as per HPI Card Reports as per HPI Resp Reports as per HPI GI Reports as per HPI Reports as per HPI Physical Exam Vital Signs: Last Vital Signs Pulse 63 10/30/24 08:52 BP 104/59 L 10/30/24 08:52 Pulse Ox 100 10/30/24 08:52 Oxygen Delivery Method Room Air 10/30/24 08:52 BMI result Body Mass Index 23.1 Const General: healthy appearing, no acute distress and well developed Nutritional Appearance: well nourished Orientation/consciousness: patient oriented x3 HEENT Head: Yes normal to inspection, Yes normocephalic and Yes atraumatic Face and sinus: Yes normal facial exam Eyes General: appearance normal, both eyes and all related structures Neck Neck: Yes normal visual inspection Resp Effort & Inspection: normal respiratory effort, able to speak in complete sentences, no tracheal deviation and symmetric chest movement Auscultation: clear to auscultation bilaterally Cardio Jugular venous distension: no JVD Rate: regular rate Rhythm: regular rhythm Heart sounds: S1 normal heart sound present, S2 normal heart sound present, no gallops and no murmurs GI Inspection: Yes normal to inspection and No distended Palpation (GI): Soft to palpation, not firm, nontender and No hepatosplenomegaly present Auscultation: normal bowel sounds Neuro General: patient oriented x3 Gait exam (Neuro): Normal gait present Psych Appearance: grossly normal Mental Status: mental status grossly normal Speech and movement: Normal speech and movement present Affect: normal affect Attitude: cooperative Thought process: Normal thought process present Thought content: Normal thought content present Insight: Good insight present (Psych) Judgement: Good judgement present (Psych) Assessment & Plan Assessment & Plan (1) Colon cancer screening: Code(s): Z12.11 - Encounter for screening for malignant neoplasm of colon Category: Medical Plan: Due for index screening colonoscopy, without alarm features Medications: -prescriptions for laxative tablets and MiraLax sent to pharmacy; instructions for Gatorade purchase and clear liquid diet given. - understands anticoagulation will need to be held days prior to procedure. Nurse to review med holds per protocol.. Patient educated on scheduling process, procedure preparation, including avoiding certain foods and ensuring clear liquid intake Advised on necessity for ride post-procedure due to sedation. Contact business planning analyst for guidance on holding Eliquis prior to procedure. (2) Protein S deficiency: Code(s): D68.59 - Other primary thrombophilia Category: Medical Plan: AND Factor V Leiden - History of DVT during and superficial thrombosis. - Continue Eliquis. - Coordinate with hematology regarding Eliquis management for upcoming colonoscopy. - Patient to mention colonoscopy at upcoming hematology appointment. Plan Follow up after colonoscopy as needed Time: I spent a total of 25 minutes on the date of encounter which includes: Preparing to see the patient (reviewed previous documentation, test results and medical history) Performing a medically appropriate exam and/or evaluation Ordering medications, tests, and procedures Documenting clinical information in the health record Medications: New polyethylene glycol 3350 (Miralax) per colonoscopy prep instructions 238 grams PO ONCE 238 grams 0RF bisacodyl Take four tablets once for 1 day per colonoscopy instructions 5 mg PO ONCE 4 tabs 0RF 1 day Coding Level of Care Code New Pt New Pt Level 2 (94920) Patient Type New Diagnoses Colon cancer screening Z12.11 Protein S deficiency D68.59
[2024-10-30 08:52] VITALS: BP 104/59; PULSE 63; O2SAT 100; BMI 23.1
== END 2024-10-30 09:22 | disposition home or self-care (01) ==
LOC: HO.HGI 08:41
PROVIDERS: PCP Internal Medicine; Visit Provider Nurse Practitioner Family
DX: Z01.818 Encounter for other preprocedural examination (principal); Z12.11 Encounter for screening for malignant neoplasm of colon; D68.59 Other primary thrombophilia
CPT/HCPCS: S0285

== ENCOUNTER 2025-01-09 15:37 | Outpatient (AMB) | payer BC, SELFPAY ==
--- NOTE | 2025-01-09 15:39 | MHC.OFFVIS ---
Intake Visit Reasons: Breast lump Intake Note: Per patient, menstrual has come twice this month. Normally will get sore breast prior but not this time. Noticed some soreness/lump after sleeping on her side. Accompanied by: Self / Same As Patient Allergies No Known Allergies Allergy (Unknown, Verified 01/09/25 15:43) Is last menstrual period known: Yes Last menstrual period: 12/30/24 (Twice in 2 weeks ) Post menopausal: No Patient : No HPI Comments Details: Presenting complaining of right breast lump this morning. 07/23 right breast diagnostic mammogram and ultrasound showed the following: Targeted color Doppler ultrasound demonstrates a simple to minimally complicated cyst at 7:00 6 cm from the nipple measuring 8 x 5 x 9 mm which correlates with the circumscribed oval mass and is benign. There is a simple to minimally complicated cyst at 8:00 6 cm from nipple measuring 7 x 9 x 6 mm IMPRESSION: Simple cysts on ultrasound. Benign. ASSESSMENT: BI-RADS BI-RADS 2 - Benign Findings RECOMMENDATION: 1 year F/U 06/24 BI-RADS 1 In addition the patient is complaining of normal menstrual cycles of the last few months Last co testing in 03/22 was normal [facility] Medical History Colon cancer screening Raynaud's phenomenon Recent bereavement History of vitamin D deficiency History of deep venous thrombosis (DVT) of distal vein of right lower extremity Protein S deficiency Hx of deep vein thrombosis during Surgical History H/O breast biopsy History of wisdom tooth extraction Family History Paternal Grandmother Breast cancer Mother Adenoid cystic carcinoma Maternal Grandmother Ovarian cancer Maternal Grandfather Prostate cancer Deep vein blood clot of left lower extremity Maternal Aunt Factor 5 Leiden mutation, heterozygous Maternal Uncle Factor 5 Leiden mutation, heterozygous Social History Household Members: Spouse and Children Housing: House Alcohol intake: former Patient Tobacco Use Status: Never used Tobacco e-Cigarette/Vaping Use: Never Used Second Hand Smoke Exposure: No Patient : No service: No Current occupational status: employed 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 Gender identity: Female Cognitive needs: No Hearing needs: No Vision needs: No Female Reproductive History Menstrual Age of Menarche: 11 Date of last menstrual period: 12/30/24 (Twice in 2 weeks ) Review of Systems Const All systems reviewed & are unremarkable except as noted in HPI and below Reports as per HPI and Reports no additional complaints GI Reports no additional complaints Reports no additional complaints Physical Exam Chest Chest palpation & inspection: normal inspection of the chest and normal palpation of entire chest wall Breast/axilla inspection: normal inspection of the breasts Breast/axilla palpation: palpation of the breasts abnormal (Right breast lump 2 cm in size, 6 cm from the nipple, left breast wnl) General: Yes no CVA tenderness External Female Exam: normal external appearance and normal appearance of the urethra Speculum Exam - Vagina: normal appearance of the vagina, normal palpation, no lesions and no masses Speculum Exam - Cervix: normal appearance of the cervix, normal palpation, no lesions, no masses and nontender Bimanual exam- vagina & uterus: normal bimanual exam, normal palpation, uterine size normal, normal palpation, uterine shape normal, No Cervical tenderness present and non-tender Bimanual Exam- Adnexa, other: normal adnexae Back/Spine/Pelvis Back: no CVA tenderness Assessment & Plan Assessment & Plan (1) Breast lump on right side at 7 o'clock position: Comment: 2 cm in size, 6 cm from the nipple Code(s): N63.13 - Unspecified lump in the right breast, lower outer quadrant Category: Medical Plan: Discussed with the patient the finding on right Breast exam (breast lump) .The differential diagnosis includes but not limited to lump/cyst/pre cancer/cancer or dense breast tissue. The work up includes right breast US and right diagnostic mammogram and referred the patient for surgical breast consult. (2) Abnormal uterine bleeding (AUB): Code(s): N93.9 - Abnormal uterine and vaginal bleeding, unspecified Category: Medical Plan: GC and chlamydia taken CBC, TSH, HCG, FSH/LH and pelvic ultrasound ordered. Discussed with the patient the different causes of abnormal bleeding including thyroid disorders, uterine and ovarian pathology, endometrial hyperplasia, carcinoma and other potential causes. Discussed with the patient the work up including CBC (to r/o anemia), TSH, FSH/LH, pelvic Ultrasound, endometrial biopsy to r/o endometrial pathology. All questions answered and the patient verbalized understanding. Instructed the patient to schedule an appointment for an endometrial biopsy in 2 weeks. Orders: Orders CT NG by PCR Vag/Cerv Today N63.13 - Unspecified lump in the right breast, lower outer quadrant, N93.9 - Abnormal uterine and vaginal bleeding, unspecified TSH reflex Free T4 Today N93.9 - Abnormal uterine and vaginal bleeding, unspecified Lutenizing Hormone Today N93.9 - Abnormal uterine and vaginal bleeding, unspecified MM tomosynthesis diagnostic RT Today N63.13 - Unspecified lump in the right breast, lower outer quadrant Complete Blood Count no Diff Today N93.9 - Abnormal uterine and vaginal bleeding, unspecified Follicle Stimulating Hormone Today N93.9 - Abnormal uterine and vaginal bleeding, unspecified HCG Quantitative Today N93.9 - Abnormal uterine and vaginal bleeding, unspecified US pelvic and transvaginal Today N93.9 - Abnormal uterine and vaginal bleeding, unspecified US breast RT limited Today N63.13 - Unspecified lump in the right breast, lower outer quadrant Referrals General Surgery Referral N63.13 - Unspecified lump in the right breast, lower outer quadrant Coding Level of Care Code Est Pt Level 3 (18175) Diagnoses Breast lump on right side at 7 o'clock position N63.13 Abnormal uterine bleeding (AUB) N93.9
== END 2025-01-09 16:09 | disposition home or self-care (01) ==
LOC: HO.HWS 15:37
PROVIDERS: PCP Internal Medicine; Visit Provider Obstetrics & Gynecology
DX: N63.13 Unspecified lump in the right breast, lower outer quadrant (principal); N93.9 Abnormal uterine and vaginal bleeding, unspecified
CPT/HCPCS: 99213

== ENCOUNTER 2025-01-09 15:37 | Outpatient (REF) | payer BC, SELFPAY ==
[2025-01-09 17:12] LABS: Hematocrit 38.5 % (37.0-47.0); Hemoglobin 13.1 g/dl (12.0-16.0); Mean Corpuscular HGB Conc 34.0 g/dl (31.0-35.0); Mean Corpuscular Hemoglobin 31.0 pg (27.0-33.0); Mean Corpuscular Volume 91.0 fL (80.0-98.0); NRBC Abs Auto 0.000 X10*3/uL (0.0-0.012); NRBC Pct Auto 0.0 /100WBC (0.0-0.2); Platelet Count 350 X10*3/uL (160-400); Red Blood Count 4.23 X10*6/uL (4.20-5.50); White Blood Count 7.6 X10*3/uL (4.8-10.8)
[2025-01-09 21:31] LABS: CT PCR NOT DETECTED (Not Detect.); NG PCR NOT DETECTED (Not Detect.)
[2025-01-10 05:28] LABS: Follicle Stimulating Hormone 7.1 mIU/mL
== END 2025-01-09 15:38 | disposition home or self-care (01) ==
LOC: HO.LAB 15:37
PROVIDERS: PCP Internal Medicine; Visit Provider Obstetrics & Gynecology
DX: N63.13 Unspecified lump in the right breast, lower outer quadrant (principal); N93.9 Abnormal uterine and vaginal bleeding, unspecified; Z32.02 Encounter for pregnancy test, result negative
CPT/HCPCS: 36415; 83001; 83002; 84443; 84702; 85027; 87491; 87591

== ENCOUNTER 2025-01-30 09:43 | Outpatient (AMB) | payer BC, SELFPAY ==
[2025-01-30 09:54] VITALS: BMI 23.1
--- NOTE | 2025-01-30 09:54 | MHC.OFFVIS ---
Vital Signs 01/30/25 09:54 Height 5 ft 6 in Weight 143 lb BMI 23.1 Intake Visit Reasons: EMB/Ok per Ale[employer] Operator Required: No Information Interpreted: non-clinical & clinical Ship Self Defense System Mk1 Operator: Ship Self Defense System Mk1 Operator Present (Isabella WEATHERS) Accompanied by: Self / Same As Patient Allergies No Known Allergies Allergy (Unknown, Verified 01/30/25 10:13) Is last menstrual period known: Yes Last menstrual period: 01/29/25 HPI Comments Details: Presenting for EMB PFS Medical History Colon cancer screening Raynaud's phenomenon Recent bereavement History of vitamin D deficiency History of deep venous thrombosis (DVT) of distal vein of right lower extremity Protein S deficiency Hx of deep vein thrombosis during Surgical History H/O breast biopsy History of wisdom tooth extraction Family History Paternal Grandmother Breast cancer Mother Adenoid cystic carcinoma Maternal Grandmother Ovarian cancer Maternal Grandfather Prostate cancer Deep vein blood clot of left lower extremity Maternal Aunt Factor 5 Leiden mutation, heterozygous Maternal Uncle Factor 5 Leiden mutation, heterozygous Social History Household Members: Spouse and Children Housing: House Alcohol intake: former Patient Tobacco Use Status: Never used Tobacco e-Cigarette/Vaping Use: Never Used Second Hand Smoke Exposure: No service: No 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 occupational status: employed 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 Gender identity: Female Cognitive needs: No Hearing needs: No Vision needs: No Female Reproductive History Menstrual Age of Menarche: 11 Date of last menstrual period: 01/29/25 Review of Systems Const All systems reviewed & are unremarkable except as noted in HPI and below Reports as per HPI and Reports no additional complaints GI Reports no additional complaints Reports no additional complaints Physical Exam Vital Signs: BMI result Body Mass Index 23.1 Office Procedures Endometrial Biopsy Details: The patient was counseled regarding the indication and benefits of endometrial sampling to rule out endometrial pathology including not limited to endometrial hyperplasia or endometrial cancer and others; The alternatives (Either do nothing vs. hysteroscopy D&C) & the risks were discussed with the patient including but not limited: pain, uterine perforation, bleeding, infection, possible injury to bladder, bowel, ureter, possible need for blood transfusion with all its possible risks. The patient verbalized understanding all questions answered and signed consent. Urine test done in the office was negative The patient was placed into the dorsal lithotomy position; a speculum was inserted in the vagina. Using aseptic technique for the procedure, the cervix was cleansed with Betadine. The anterior lip of the cervix was grasped with a single tooth tenaculum. The uterus was sounded to 7 cm with a 4 mm Pipelle was used. Tissues samples were obtained and placed in formalin, in a patient labeled container and sent to the pathology department. At the end of the procedure, there was minimal bleeding noted The patient tolerated the procedure well and was discharged in good condition with the following instructions: Nothing in the vagina until the bleeding stops. No sex until the bleeding stops, to call if any of the following occurs: fever (>100.4), flu-like symptoms, abdominal pain, heavy bleeding, four smelling vaginal discharge. The patient was instructed to schedule a Follow up appointment in 2 weeks to discuss pathology results of the biopsy and treatment options. This note was generated with a voice recognition program. Some errors may have been overlooked during the review of this note. Sometimes these errors may affect the content or meaning of a given sentence. [id number] Biopsy Results AMB Test Urine AMB Test Urine Negative Last Edit by Isabella Newman CMA on 01/30/25 10:06 Results Reviewed Results Reviewed: Laboratory Last Values Tst Clinic Negative 01/30/25 10:06 Assessment & Plan Assessment & Plan (1) Abnormal uterine bleeding (AUB): Code(s): N93.9 - Abnormal uterine and vaginal bleeding, unspecified Category: Medical Plan: EMB done, see procedure note Orders: Orders AMB HCG Urine Test Today Z32.02 - Encounter for test, result negative AMB Endometrial Biopsy Today N93.9 - Abnormal uterine and vaginal bleeding, unspecified Coding Level of Care Code Procedure Only Diagnoses Abnormal uterine bleeding (AUB) N93.9 CPT Codes Endometrial Biopsy - CPT: 27222-[id number] Biopsy ([id number])
== END 2025-01-30 10:13 | disposition home or self-care (01) ==
LOC: HO.HWS 09:44
PROVIDERS: PCP Internal Medicine; Visit Provider Obstetrics & Gynecology
DX: N93.9 Abnormal uterine and vaginal bleeding, unspecified (principal); Z32.02 Encounter for pregnancy test, result negative
CPT/HCPCS: 58100

== ENCOUNTER 2025-01-30 10:19 | Outpatient (REF) | payer BC, SELFPAY | END 2025-01-30 10:20 | disposition home or self-care (01) | LOC: HO.LNP 10:19 | PROVIDERS: Visit Provider Obstetrics & Gynecology | DX: Z32.02 Encounter for pregnancy test, result negative (principal); N93.9 Abnormal uterine and vaginal bleeding, unspecified | CPT/HCPCS: 88305 ==

== ENCOUNTER 2025-01-30 12:10 | Outpatient (REF) | payer BC, SELFPAY ==
--- NOTE | ~2025-01-30 | US_ITS ---
EXAMINATION: MM DIAGNOSTIC DIGITAL BREAST TOMOSYNTHESIS, RIGHT Right limited ultrasound. CLINICAL INFORMATION: Right breast painful palpable lump lower outer breast previously seen to represent a simple to minimally complicated cyst which was benign. COMPARISON: Mammography: [facility] on PACS. TECHNIQUE: Digital breast tomosynthesis is performed in both the craniocaudal and mediolateral oblique views along with computer-aided detection (CAD). Synthesized 2D images are generated from the tomosynthesis. FINDINGS: The breasts are heterogeneously dense, which may obscure small masses. [place] marker at site of pain in the lower outer breast with an underlying circumscribed oval mass slightly decreased in size from prior. No suspicious calcifications or other abnormal findings. Targeted color Doppler ultrasound scanning in the right breast 8:00 6 cm from the nipple again demonstrates a minimally complicated cyst measuring 7 x 5 x 6 slightly decreased from prior previously measuring 7 x 9 x 6 mm. There is an additional hypoechoic oval circumscribed solid mass versus complicated cyst at 7:00 6 cm from the nipple measuring 4 x 2 x 4 mm. US/US Breast RT Limited Mamm Only IMPRESSION: Right: 1. Minimally complicated cyst at 8:00 slightly decreased in size from prior. The patient states that this area is painful and palpable and changes in size. Patient has a consultation with a breast surgeon coming out. This finding is benign however it is amenable to ultrasound-guided aspiration if indicated. 2. Hypoechoic oval solid mass versus complicated cyst at 7:00 6 cm from the nipple. Recommend 6 month follow-up for further evaluation of stability. ASSESSMENT: BI-RADS Category 3: Probably benign RECOMMENDATION: 6 Month F/U Results were provided to the patient at time of visit by the technologist. This patient's information was entered into a reminder system with a target due date for their next mammogram. Electronically signed by: Hilaria Manuel DO 01/30/2025 01:55 PM EDT
== END 2025-01-30 12:11 | disposition home or self-care (01) ==
LOC: HO.MAMMO 12:10
PROVIDERS: PCP Internal Medicine; Visit Provider Internal Medicine
DX: N63.13 Unspecified lump in the right breast, lower outer quadrant (principal)
CPT/HCPCS: 76642; 77061; 77065

== ENCOUNTER → 2025-01-30 13:00 | Outpatient (BNV) | payer BC, SELFPAY | PROVIDERS: PCP Internal Medicine; Visit Provider Internal Medicine | DX: N63.13 Unspecified lump in the right breast, lower outer quadrant (principal) | CPT/HCPCS: 76642; 77061; 77065 ==

== ENCOUNTER 2025-02-11 12:59 | Outpatient (AMB) | payer BC, SELFPAY ==
--- NOTE | 2025-02-11 13:08 | MHC.OFFVIS ---
Vital Signs 02/11/25 13:24 Height 5 ft 6 in Weight 140 lb BMI 22.6 BP 106/57 L Blood Pressure Location Lt brachial Position Sitting Pulse 74 Intake Visit Reasons: Unspecified lump in the right breast Intake Note: Patient is seen in office for evaluation of a lump in the right breast. Pt c/o: had a mammogram done in Spring due to a cyst, however felt a lump in December and had us/mm done, had a bx in the past- same breast due to calcification, has fm hx of breast cancer- paternal grandmother age of 60, denies any other concerns such as redness, discharge, discoloration us/mm:01/30/25 Environmental Science Program Director Required: No Landfill Gas Collection System Operator: Landfill Gas Collection System Operator Present Accompanied by: Self / Same As Patient Allergies No Known Allergies Allergy (Unknown, Verified 01/30/25 10:13) HPI Comments Details: 44-year-old female patient presenting for evaluation of a palpable lump in the right breast. She 1st noted the lump on self-examination in December. She underwent mammogram and ultrasound of the right breast on 01/30/2025. This revealed heterogeneously dense breast tissue. No suspicious calcifications or abnormal findings were identified by mammogram targeted Doppler ultrasound of the right breast demonstrated a minimally complicated cyst measuring 7 x 5 x 6 mm at the 8 o'clock position 6 cm from the nipple which was slightly decreased from prior measurements of 7 x 9 x 6 mm. An additional hypoechoic oval circumscribed solid mass versus complicated cyst was noted at the 7 o'clock position 6 cm from the nipple measuring 4 x 2 x 4 mm. These 2 lesions were felt to be low suspicion for malignancy (BI-RADS 3) and six-month follow-up diagnostic study is recommended. She reports today that she is no longer able to feel a lump in the right breast and no longer has pain. And menarche was at the age of 11. She is 1 para 1 with 1 adopted child. She is premenopausal but has not noted changes in the lump associated with the menstrual cycle. She previously underwent a right breast biopsy which was benign. She denies any breast surgery. Family history is significant for a paternal grandmother with breast cancer. She was diagnosed with a protein S deficiency and factor 5 laden in his being treated with Eliquis 2.5 mg p.o. b.i.d.. She reports history of DVT x2, the 1st occurring during her . [facility] Medical History Colon cancer screening Raynaud's phenomenon Recent bereavement History of vitamin D deficiency History of deep venous thrombosis (DVT) of distal vein of right lower extremity Protein S deficiency Hx of deep vein thrombosis during Surgical History H/O breast biopsy History of wisdom tooth extraction Family History Paternal Grandmother Breast cancer Mother Adenoid cystic carcinoma Maternal Grandmother Ovarian cancer Maternal Grandfather Prostate cancer Deep vein blood clot of left lower extremity Maternal Aunt Factor 5 Leiden mutation, heterozygous Maternal Uncle Factor 5 Leiden mutation, heterozygous Social History Household Members: Spouse and Children Housing: House Alcohol intake: former Patient Tobacco Use Status: Never used Tobacco e-Cigarette/Vaping Use: Never Used Second Hand Smoke Exposure: No service: No 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 occupational status: employed 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 Gender identity: Female Cognitive needs: No Hearing needs: No Vision needs: No Female Reproductive History Menstrual Age of Menarche: 11 Date of last menstrual period: 01/28/25 Total pregnancies: 1 Number of Living Children: 2 Review of Systems Const All systems reviewed & are unremarkable except as noted in HPI and below Physical Exam Const General: cooperative and no acute distress Nutritional Appearance: well nourished Orientation/consciousness: patient oriented x3 Limitations: no limitations HEENT Head: Yes normocephalic and Yes atraumatic Ears: hearing grossly normal bilaterally Chest Other: Left breast: No skin change, no nipple retraction, no nipple discharge, no palpable mass, no enlarged lymph nodes. Right breast: No skin change, no nipple retraction, no nipple discharge, no palpable mass, no enlarged lymph nodes Resp Effort & Inspection: normal respiratory effort, no audible wheezes, no cough and no respiratory distress Cardio Jugular venous distension: no JVD GI Inspection: Yes normal to inspection Skin Other: Warm, dry, no rash Neuro General: patient oriented x3 Extrem General: Yes no clubbing, cyanosis or edema Assessment & Plan Assessment & Plan (1) Breast lump on right side at 7 o'clock position: Comment: 2 cm in size, 6 cm from the nipple Code(s): N63.13 - Unspecified lump in the right breast, lower outer quadrant Category: Medical Plan 44-year-old female patient presenting with a previous history of a self palpated left breast lump in the 7 o'clock position which was initially quite painful especially while in bed. This was exceptionally painful approximately 1 month ago but has subsequently subsided. Mammogram and ultrasound performed in June identified a probable cyst in the right breast corresponding to the palpable lesion. Repeat ultrasound in 6 months along with a diagnostic mammogram showed that the previously identified lesion had decreased in size. A 2nd smaller lesion was noted also felt to be a possible complicated cyst versus solid lesion. This was felt to be low suspicion for malignancy (BI-RADS 3) and diagnostic mammogram/ultrasound recommended in 6 months. On examination today however no palpable mass or suspicious findings were identified in either breast. Findings are suggestive of benign breast cysts which have subsequently subsided and no surgical intervention is recommended at this time. She is welcome to call should the cyst return and become symptomatic. She will follow up as needed. Coding Level of Care Code New Pt Level 4 (66712) Diagnoses Breast lump on right side at 7 o'clock position N63.13
[2025-02-11 13:24] VITALS: BP 106/57; PULSE 74; BMI 22.6
== END 2025-02-11 13:37 | disposition home or self-care (01) ==
LOC: HO.HGS 13:00
PROVIDERS: PCP Internal Medicine; Visit Provider Surgery
DX: N63.13 Unspecified lump in the right breast, lower outer quadrant (principal)
CPT/HCPCS: 99204

== ENCOUNTER 2025-02-27 15:34 | Outpatient (REF) | payer BC, SELFPAY ==
--- NOTE | ~2025-02-27 | US_ITS ---
EXAMINATION: US PELVIS CLINICAL INFORMATION: Abnormal vaginal bleeding COMPARISON: None available. TECHNIQUE: Ultrasound of the pelvis is performed using both transabdominal and transvaginal transducers along with Doppler. Transvaginal imaging is performed due to inadequate visualization transabdominally. FINDINGS: Uterus: The uterus is anteverted and measures 7.9 x 3.9 x 5.1 cm. The double wall endometrial thickness is 9 mm. No endometrial fluid or mass. The uterus is smooth in contour and has normal myometrial echogenicity. No visible fibroid. Adnexa: Both ovaries are visualized. There is normal color flow to the adnexa. There is no ovarian torsion. There is no pelvic ascites or fluid collection. Right ovary measures 2 x 1.2 x 1.5 cm. Normal. Left ovary measures 3.4 x 2.6 x 2.9 cm. 1.4 x 1 x 1.4 cm and 1.6 x 1.4 x 1.6 cm complex cysts with internal echoes US/US pelvic and transvaginal IMPRESSION: Normal-appearing uterus and endometrium. Two complex left ovarian cysts with internal echoes, largest measuring 1.6 cm. Normal right ovary. Recommend follow-up pelvic ultrasound in 10-12 weeks following several menstrual cycles. Electronically signed by: Sandra Vasquez MD 02/27/2025 04:56 PM EDT
== END 2025-02-27 15:35 | disposition home or self-care (01) ==
LOC: HO.US 15:34
PROVIDERS: PCP Internal Medicine; Visit Provider Obstetrics & Gynecology
DX: N93.9 Abnormal uterine and vaginal bleeding, unspecified (principal)
CPT/HCPCS: 76830; 76856

== ENCOUNTER → 2025-02-27 15:35 | Outpatient (BNV) | payer BC, SELFPAY | PROVIDERS: PCP Internal Medicine; Visit Provider Radiology Diagnostic Radiology | DX: N83.202 Unspecified ovarian cyst, left side (principal); N93.9 Abnormal uterine and vaginal bleeding, unspecified | CPT/HCPCS: 76830; 76856 ==

== ENCOUNTER 2025-03-13 15:16 | Outpatient (AMB) | payer BC, SELFPAY ==
--- NOTE | 2025-03-13 15:17 | A.OFFVIS_ITS ---
Intake Visit Reasons: US Follow up/ EMB resultsOk Per Aleta Twisting Frame Fixer Required: No Information Interpreted: non-clinical & clinical Allergies No Known Allergies Allergy (Unknown, Verified 03/13/25 15:17) HPI Comments Details: The patient schedule a telehealth visit for follow-up to discuss the results of her abnormal uterine bleeding workup and options of treatment. The following workup was done.: H&H= is 13.1/38.5 TSH, hCG, GC and chlamydia were negative. FSH/LH 7.1/4.8 Endometrial biopsy pathology showed the following: Inactive endometrium with lytic changes; no atypia or hyperplasia identified Co testing was done in 03/22 was negative. 02/22 Mammogram was BI-RADS 3 Pelvic ultrasound showed the following: IMPRESSION: Normal-appearing uterus and endometrium. Two complex left ovarian cysts with internal echoes, largest measuring 1.6 cm. Normal right ovary. Recommend follow-up pelvic ultrasound in 10-12 weeks following several menstrual cycles. [facility] Medical History Colon cancer screening Raynaud's phenomenon Recent bereavement History of vitamin D deficiency History of deep venous thrombosis (DVT) of distal vein of right lower extremity Protein S deficiency Hx of deep vein thrombosis during Surgical History H/O breast biopsy History of wisdom tooth extraction Family History Paternal Grandmother Breast cancer Mother Adenoid cystic carcinoma Maternal Grandmother Ovarian cancer Maternal Grandfather Prostate cancer Deep vein blood clot of left lower extremity Maternal Aunt Factor 5 Leiden mutation, heterozygous Maternal Uncle Factor 5 Leiden mutation, heterozygous Social History Household Members: Spouse and Children Housing: House Alcohol intake: former Patient Tobacco Use Status: Never used Tobacco e-Cigarette/Vaping Use: Never Used Second Hand Smoke Exposure: No service: No Current occupational status: employed 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 Gender identity: Female Cognitive needs: No Hearing needs: No Vision needs: No Female Reproductive History Menstrual Age of Menarche: 11 Telehealth Telehealth Telehealth Platform: [facility] Location of provider rendering services: practice address Location of patient: address on file Patient Identification confirmed using: Name, : Yes Telehealth method: video Patient verbally consented to treatment: Yes Patient verbally consented to billing insurance company: Yes Patient informed of any privacy concerns related to visit: Yes Minutes spent on Phone/Video with Pt.: 12 Assessment & Plan Assessment & Plan (1) Abnormal uterine bleeding (AUB): Comment: Protein S deficiency and history of DVT during on apixaban 2.5 mg p.o. b.i.d. BI-RADS 3 Code(s): N93.9 - Abnormal uterine and vaginal bleeding, unspecified Category: Medical Plan: Discussed with the patient the results of the work up done and options of treatment including Mirena IUD, endometrial ablation and hysterectomy. All pros, cons, risks and benefits if each option was discussed with the patient and the patient decided to do nothing, observe her menstrual cycle and get back to us if things change. All questions answered the patient verbalized understanding. (2) Complex ovarian cyst: Comment: To left complex ovarian cyst Code(s): N83.299 - Other ovarian cyst, unspecified side Category: Medical Plan: Discussed with the patient the 2 complex ovarian cysts by ultrasound. Discussed with the patient the Ultrasound findings, the main limitation of transvaginal ultrasonography alone as a diagnostic tool to distinguish benign from malignant masses relates to its lack of specificity and low positive predictive value for cancer. The differential diagnosis discussed with the patient includes the following but not limited to: benign and malignant gynecological and non-gynecological causes. Will proceed with a pelvic MRI with contrast. Instructions given the patient to schedule a follow-up appointment. All questions were answered & the patient verbalized understanding and agreed with the plan. I spent a total of 20 minutes reviewing the chart, talking to the patient via video and documenting in the medical record. Orders: Orders MR pelvis wo/w con Today N83.299 - Other ovarian cyst, unspecified side Coding Level of Care Code Tele Est Pt Level 3 (40912) Diagnoses Abnormal uterine bleeding (AUB) N93.9 Complex ovarian cyst N83.299
== END 2025-03-13 16:09 | disposition home or self-care (01) ==
LOC: HO.HWS 15:16
PROVIDERS: PCP Internal Medicine; Visit Provider Obstetrics & Gynecology
DX: N93.9 Abnormal uterine and vaginal bleeding, unspecified (principal); N83.299 Other ovarian cyst, unspecified side
CPT/HCPCS: 99213

== ENCOUNTER → 2025-04-11 16:13 | Outpatient (BNV) | payer BC, SELFPAY | PROVIDERS: PCP Internal Medicine; Visit Provider Radiology Diagnostic Radiology | DX: N83.209 Unspecified ovarian cyst, unspecified side (principal); K76.9 Liver disease, unspecified | CPT/HCPCS: 72197 ==

== ENCOUNTER 2025-04-11 16:18 | Outpatient (REF) | payer BC, SELFPAY ==
--- NOTE | ~2025-04-11 | MR_ITS ---
EXAMINATION: MR PELVIS WITHOUT AND WITH CONTRAST CLINICAL INFORMATION: Ovarian cyst COMPARISON: Previous pelvic ultrasound February 27, 2025 TECHNIQUE: Sagittal axial and coronal sequences through the pelvis with and without gadolinium. Patient received 6.5 mL gadovist IV contrast. FINDINGS: The uterus is anteverted and measures 7.5 x 4.3 x 6.5 cm in dimension. No focal uterine lesion. The junctional zone does not appear thickened. The endometrium does not appear thickened measuring 5 mm. No endometrial mass. Small nabothian cyst in the cervix. The ovaries are not well seen by MRI due to adjacent loops of bowel. There is a 1 x 1.2 cm irregularly shaped right ovarian cyst with enhancing wall axial image 72 series 10 post contrast. There is a 1.2 x 1.7 cm irregularly-shaped left ovarian cyst with enhancing wall axial image 68 series 10 post contrast. These probably represent involuting physiologic cysts. The bladder is normal. No ascites or adenopathy. Visualized bowel is unremarkable. The appendix is unremarkable. There are several right T2 lesions seen in the liver. Largest lesions measure 2 x 2.8 cm and 2 x 1.7 cm in the high right lobe axial image 17 series 2 and smaller 1.7 cm lesion right lobe axial image 14 series 2. These are seen on T2 sequences only and cannot be further characterized. Follow-up liver ultrasound or MRI recommended. Bony structures are unremarkable. MR/MR pelvis wo/w con IMPRESSION: Ovaries not well-visualized due to adjacent loops of bowel. Bilateral irregularly-shaped ovarian cysts with enhancing wall probably representing involuting physiologic cysts measuring 1 x 1.2 cm on the right and 1.2 x 1.7 cm on the left. Several bright T2 liver lesions, largest measuring 2 x 2.8 cm. These are incompletely characterized on this exam. Follow-up liver ultrasound or MRI recommended. Electronically signed by: Sandra Vasquez MD 04/11/2025 05:42 PM [facility]
== END 2025-04-11 16:19 | disposition home or self-care (01) ==
LOC: HO.MRI 16:18
PROVIDERS: PCP Internal Medicine; Visit Provider Obstetrics & Gynecology
DX: N83.291 Other ovarian cyst, right side (principal); N83.292 Other ovarian cyst, left side
CPT/HCPCS: 72197; A9585

== ENCOUNTER 2025-04-16 15:28 | Outpatient (AMB) | payer BC, SELFPAY ==
--- NOTE | 2025-04-16 15:36 | A.OFFVIS_ITS ---
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 Bilateral irregularly-shaped ovarian cysts with enhancing wall probably representing involuting physiologic cysts measuring 1 x 1.2 cm on the right and 1.2 x 1.7 cm on the left. Several bright T2 liver lesions, largest measuring 2 x 2.8 cm. These are incompletely characterized on this exam. Follow-up liver ultrasound or MRI recommended. 02/27/2025 pelvic ultrasound showed the following: IMPRESSION: Normal-appearing uterus and endometrium. Two complex left ovarian cysts with internal echoes, largest measuring 1.6 cm. Normal right ovary. Recommend follow-up pelvic ultrasound in 10-12 weeks following several menstrual cycles. Last mammogram in 02/22 was BI-RADS 3 Last Co testing 03/22 was negative [facility] Medical History Colon cancer screening Raynaud's phenomenon Recent bereavement History of vitamin D deficiency History of deep venous thrombosis (DVT) of distal vein of right lower extremity Protein S deficiency Hx of deep vein thrombosis during Surgical History H/O breast biopsy History of wisdom tooth extraction Family History Paternal Grandmother Breast cancer Mother Adenoid cystic carcinoma Maternal Grandmother Ovarian cancer Maternal Grandfather Prostate cancer Deep vein blood clot of left lower extremity Maternal Aunt Factor 5 Leiden mutation, heterozygous Maternal Uncle Factor 5 Leiden mutation, heterozygous Social History Household Members: Children Housing: House Alcohol intake: former Patient Tobacco Use Status: Never used Tobacco e-Cigarette/Vaping Use: Never Used Second Hand Smoke Exposure: No service: No 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 occupational status: employed 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 Gender identity: Female Cognitive needs: No Hearing needs: No Vision needs: No Female Reproductive History Menstrual Age of Menarche: 11 Total pregnancies: 1 Full term: 1 Number of Living Children: 1 (one adopted) Date of last pap smear: 03/30/22 Date of Mammogram: 01/30/25 Review of Systems Const All systems reviewed & are unremarkable except as noted in HPI and below Card Reports as per HPI Resp Reports as per HPI GI Reports as per HPI and Reports no additional complaints Reports as per HPI Physical Exam Vital Signs: BMI result Body Mass Index 23.1 Const General: cooperative, healthy appearing and comfortable Chest Chest palpation & inspection: normal inspection of the chest and normal palpation of entire chest wall Breast/axilla inspection: normal inspection of the breasts and normal inspection of the axillae Breast/axilla palpation: normal palpation of the breasts, normal palpation of the axillae and no axillary lymphadenopathy Resp Effort & Inspection: normal respiratory effort Auscultation: clear to auscultation bilaterally Percussion: percussion normal Cardio Palpation: normal PMI Rate: regular rate Rhythm: regular rhythm Heart sounds: no murmurs and no rubs Peripheral pulses: Peripheral pulses 2+ throughout GI Inspection: Yes normal to inspection Palpation (GI): Soft to palpation, nontender, no guarding, not rigid and No hepatosplenomegaly present Percussion: Yes normal to percussion Auscultation: normal bowel sounds Rectal Exam - Female: deferred General: Yes bladder normal to palpation External Female Exam: No lesion Speculum Exam - Vagina: normal appearance of the vagina, normal palpation, normal vaginal discharge and not erythematous Speculum Exam - Cervix: normal appearance of the cervix and normal palpation Bimanual exam- vagina & uterus: normal bimanual exam, normal palpation, uterine size normal, bladder normal to palpation, consistency normal and normal palpation Bimanual Exam- Adnexa, other: normal adnexae, no masses and no tenderness Assessment & Plan Assessment & Plan (1) Complex ovarian cyst: Comment: To left complex ovarian cyst Code(s): N83.299 - Other ovarian cyst, unspecified side Category: Medical Plan: Discussed with the patient the results the MRI, involuting physiologic cyst will repeat ultrasound in 6 weeks. Instructions given the patient to schedule a 6 week ultrasound follow-up appointment (2) Well woman exam: Code(s): Z01.419 - Encounter for gynecological examination (general) (routine) without abnormal findings Category: Medical Plan: Cotesting not indicated this year. Mammogram scheduled. The patient has an appointment scheduled with GI for screening colonoscopy Counseled the patient about the recommended dietary allowance of 1000 mg of Calcium & 600 IU of vitamin D. The patient was instructed to perform monthly self-breast exams and to schedule an annual exam in a year; All questions answered and the patient verbalized understanding. Instructed the patient to schedule annual exam in a year (3) Abnormal MRI, liver: Code(s): R93.2 - Abnormal findings on diagnostic imaging of liver and biliary tract Category: Medical Plan: Discussed with the patient the finding of liver on MRI , recommended to contact PCP for further management. All questions answered, the patient verbalized understanding Orders: Orders US pelvic and transvaginal 6 Weeks N83.299 - Other ovarian cyst, unspecified side Coding Level of Care Code Est Pt Level 3 (59645) Est Pt Prev Care 40-64y(54420) Diagnoses Complex ovarian cyst N83.299 Well woman exam Z01.419 Abnormal MRI, liver R93.2
[2025-04-16 15:40] VITALS: BP 108/66; BMI 23.1
== END 2025-04-16 16:06 | disposition home or self-care (01) ==
LOC: HO.HWS 15:29
PROVIDERS: PCP Internal Medicine; Visit Provider Obstetrics & Gynecology
DX: Z01.419 Encounter for gynecological examination (general) (routine) without abnormal findings (principal); N83.292 Other ovarian cyst, left side; R93.2 Abnormal findings on diagnostic imaging of liver and biliary tract
CPT/HCPCS: 99213; 99396; 99459

== ENCOUNTER 2025-04-28 12:34 | Day surgery (SDC) | payer BC, SELFPAY ==
--- NOTE | 2025-04-22 13:19 | P.CONAN_ITS ---
Documented by User: Pat Jaimes NP 04/22/25 13:19 HPI - Anesthesia Eval Consult details Narrative: 44yo F for Colonoscopy Protein S def with hx DVT - [facility] Active Problems Active Problems: All Active Problems Lesion of liver (Acute) Abnormal MRI, liver (Acute) Complex ovarian cyst (Acute) Abnormal uterine bleeding (AUB) (Acute) Breast lump on right side at 7 o'clock position (Acute) Colon cancer screening (Acute) Raynaud's phenomenon (Acute) History of vitamin D deficiency (Acute) History of deep venous thrombosis (DVT) of distal vein of right lower extremity (Acute) Deep vein thrombosis (DVT) during (Acute) Protein S deficiency (Acute) Hx of deep vein thrombosis during (Chronic) Past Medical History Medical History Lesion of liver Colon cancer screening Raynaud's phenomenon Recent bereavement History of vitamin D deficiency History of deep venous thrombosis (DVT) of distal vein of right lower extremity Protein S deficiency Hx of deep vein thrombosis during Family History Family History Paternal Grandmother Breast cancer Mother Adenoid cystic carcinoma Maternal Grandmother Ovarian cancer Maternal Grandfather Prostate cancer Deep vein blood clot of left lower extremity Maternal Aunt Factor 5 Leiden mutation, heterozygous Maternal Uncle Factor 5 Leiden mutation, heterozygous Surgical History Surgical History H/O breast biopsy History of wisdom tooth extraction Social History Social History Household Members: Children Housing: House Alcohol intake: former Patient Tobacco Use Status: Never used Tobacco e-Cigarette/Vaping Use: Never Used Second Hand Smoke Exposure: No Use of substances other than those prescribed or required for medical reasons: No Are you DNR?: No Advance Directives: No Advance Directives Information Provided: Yes service: No 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 occupational status: employed 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 Gender identity: Female Cognitive needs: No Hearing needs: No Vision needs: No Meds Allergies Allergy/AdvReac Type Severity Reaction Status Date / Time No Known Allergies Allergy Unknown Verified 04/28/25 12:49 Home Medications ?Medication ?Instructions ?Recorded ?Confirmed ?Last Taken ?Type multivitamin 1 tab PO DAILY 03/29/2204/01 Unknown History Assessment and Plan Assessment Anesthesia Assessment: Chart Reviewed Documented by User: Tony Jacome MD 04/28/25 13:42 [facility] Past Medical History Medical History Lesion of liver Colon cancer screening Raynaud's phenomenon Recent bereavement History of vitamin D deficiency History of deep venous thrombosis (DVT) of distal vein of right lower extremity Protein S deficiency Hx of deep vein thrombosis during Functional capacity: independent ambulation Family History Family History Paternal Grandmother Breast cancer Mother Adenoid cystic carcinoma Maternal Grandmother Ovarian cancer Maternal Grandfather Prostate cancer Deep vein blood clot of left lower extremity Maternal Aunt Factor 5 Leiden mutation, heterozygous Maternal Uncle Factor 5 Leiden mutation, heterozygous Family history of problems with anesthesia: No Surgical History Surgical History H/O breast biopsy History of wisdom tooth extraction History of Problems with Anesthesia: No Social History Social History Household Members: Children Housing: House Alcohol intake: former Patient Tobacco Use Status: Never used Tobacco e-Cigarette/Vaping Use: Never Used Second Hand Smoke Exposure: No Use of substances other than those prescribed or required for medical reasons: No Are you DNR?: No Advance Directives: No Advance Directives Information Provided: Yes service: No 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 occupational status: employed 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 Gender identity: Female Cognitive needs: No Hearing needs: No Vision needs: No Meds Allergies Allergy/AdvReac Type Severity Reaction Status Date / Time No Known Allergies Allergy Unknown Verified 04/28/25 12:49 Home Medications ?Medication ?Instructions ?Recorded ?Confirmed ?Last Taken ?Type multivitamin 1 tab PO DAILY 03/29/2204/01 Unknown History Exam Exam Date and Time: 04/28/25 Airway Mallampati Class: II TM Dist: >3cm Neck ROM: Full Heart: ok Lungs: ok Other: ok Assessment and Plan Final Anesthetic Review Family History of Problems with Anesthesia: No History of Problems with Anesthesia: No NPO: Yes ASA Class: III Final Preanesthetic Review: No Changes in Pt Med Stat, Meds/Allgs Chart Reviewed, Consent Obtained/Reviewed and Anes Risks/Benef Reviewed Patient Risk: Low Procedure Risk: Low
[2025-04-23 09:31] VITALS: BMI 23.1
[2025-04-28 12:54] VITALS: BMI 23.1
[2025-04-28 12:55] VITALS: BP 98/63; PULSE 71; RESP 14; TEMP 36.8; O2SAT 98
[2025-04-28 13:02] LABS: UPreg QC Valid YES
[2025-04-28] MEDS: Lactated Ringers 1,000 ML 100 ML IVCONT (13:06)
--- NOTE | 2025-04-28 13:17 | MHC.SHP ---
Pre-Procedural Eval Section A - 24 Hr Update-Section A only Date of Service: 04/28/25 Section B - Complete if H&P > 30 days Chief Complaint: Colon cancer screening Relevant Family History (Specify if Yes): No Relevant Social History: None Present Medications: see Short Stay Collaborative assessment Medical History: Significant History (Raynaud's phenomenon Recent bereavement History of vitamin D deficiency History of deep venous thrombosis (DVT) of distal vein of right lower extremity Protein S deficiency Hx of deep vein thrombosis during ) History of Previous Operations: Relevant previous surgery/procedure and date(s) (H/O breast biopsy History of wisdom tooth extraction) Allergies: Allergies Allergy/AdvReac Type Severity Reaction Status Date / Time No Known Allergies Allergy Unknown Verified 04/28/25 12:49 Review of Systems Sugical H&P ROS: Negative: Constitution, Cardiovascular, Respiratory and Gastrointestinal Exam Surgical H&P Exam: Normal: Heart, Normal: Lungs, Normal: Extremities and Normal: Abdomen Plan Diagnosis/Plan: Unchanged I have reviewed the history and physical and performed a pertinent physical examination on my patient. No changes have occurred unless specified. Time Spent With Patient Time: Total time managing care of this patient today ____ minutes.
--- NOTE | 2025-04-28 14:27 | HO.OPN-COLON ---
Colonoscopy Operative Note Operative Note Date of Service: 04/28/25 Narrative: COLONOSCOPY TILL CECUM Pre-op diagnosis: Colon cancer screening (first colon). Post-op diagnosis:? Diverticulosis Endoscopist:? Niurka Niño MD Anesthesia:?MAC Consent: Indications for the procedure and potential complications of bleeding, perforation, reaction to medications and missed diagnosis were discussed with the patient and informed consent was obtained. Instrument: Olympus PCF H 190 L variable stiffness pediatric colonoscope Monitoring: Vital signs and clinical assessment, intermittent blood pressure monitoring, continuous EKG monitoring, Pulse oximetry and Carbon Dioxide monitoring were done throughout the procedure. Please see anesthesia flowsheet. Colon withdrawl time was 22 minutes. Procedure: The patient was placed in the left lateral decubitis position and pre-procedure medications were administered. After a digital rectal examination of the ano-rectum, the video colonoscope was inserted into the rectum and advanced through the colon to the cecum. The colonoscope was slowly withdrawn in a retrograde panoramic fashion and the colon mucosa was carefully examined including a retroflexed view of the rectum. Findings and interventions are described below. Procedure Difficulty: without difficulty Findings: Terminal Ileum: Not evaluated Cecum: Normal Ascending Colon: Normal Transverse Colon: Normal Descending Colon: Normal Sigmoid Colon: Moderate diverticulosis Rectum: Normal Ano-rectum: Normal Colon preparation: Good after copious irrigation. [place] Bowel Preparation Scale Right colon; 2 Transverse colon: 2 Left colon; 2 (0 = Unprepared colon segment with mucosa not seen due to solid stool that cannot be cleared. 1 = Portion of mucosa of the colon segment seen, but other areas of the colon segment not well seen due to staining, residual stool and/or opaque liquid. 2 = Minor amount of residual staining, small fragments of stool and/or opaque liquid, but mucosa of colon segment seen well. 3 = Entire mucosa of colon segment seen well with no residual staining, small fragments of stool or opaque liquid) Impression and Post Procedure Diagnosis: Colonoscopy Findings: No polyps were detected Moderate diverticulosis seen in the sigmoid colon Plan: Pt has a FU appointment on 05/07/25 with Lexy Méndez NP Repeat Colonoscopy in 10 year if polyps are hyperplastic. Above findings were reviewed with the patient and relevant handouts were given and the discharge area.
[2025-04-28 14:30] VITALS: BP 110/70; PULSE 78; RESP 16; TEMP 36.1; O2SAT 97
[2025-04-28 14:44] VITALS: BP 103/62; PULSE 75; RESP 16; O2SAT 100
[2025-04-28 14:52] VITALS: BP 105/61; PULSE 69; RESP 16; TEMP 36.3; O2SAT 100
== END 2025-04-28 15:02 | disposition home or self-care (01) ==
PROVIDERS: Nurse Practitioner; PCP Internal Medicine; Visit Provider Internal Medicine Gastroenterology
PROC: 0DJD8ZZ Inspection of Lower Intestinal Tract, Via Natural or Artificial Opening Endoscopic (ICD-10-PCS; CPT 45378; principal; 2025-04-28 14:20)
DX: Z12.11 Encounter for screening for malignant neoplasm of colon (principal); K57.30 Diverticulosis of large intestine without perforation or abscess without bleeding
CPT/HCPCS: 45378; 81025; J2704

== ENCOUNTER → 2025-04-28 12:34 | Outpatient (BNV) | payer BC, SELFPAY | PROVIDERS: PCP Internal Medicine; Visit Provider Internal Medicine Gastroenterology | DX: Z12.11 Encounter for screening for malignant neoplasm of colon (principal); K57.30 Diverticulosis of large intestine without perforation or abscess without bleeding | CPT/HCPCS: 45378 ==